=== PATIENT | female | born 2005 | race Two or more races ===

== ENCOUNTER 2024-08-23 16:52 | Emergency (ER) | payer MEDICAID, SELFPAY ==
[2024-08-23 17:01] VITALS: BMI 25.6
[2024-08-23 17:05] VITALS: BP 131/80; PULSE 74; RESP 18; TEMP 36.4; O2SAT 100
--- NOTE | 2024-08-23 17:09 | PC.NURSE ---
PT HERE WITH C/O ABD PAIN SINCE 07/31 AND STATES I THINK MY GALLSTONES ARE ACTING UP AGAIN.
--- NOTE | 2024-08-23 17:16 | XR_ITS ---
Examination: Abdomen sonogram, Limited Date and time of exam: August 23, 2024 1806 hours INDICATIONS: Onset right upper abdominal pain and vomiting beginning 3 days ago Technique: Real-time coleman scale transabdominal sonographic images of the upper abdomen obtained. Findings: Minimal gallbladder sludge No gallstones Gallbladder wall 0.3 cm Common bile duct enlarged 1.1 cm no definite stones Pancreas obscured by bowel gas Liver 15.3 cm fatty liver Normal hepatopedal portal venous flow. Patent IVC. IMPRESSION: Abnormally enlarged common bile duct 1.1 cm, recommend MRCP follow-up to exclude common bile duct stones
--- NOTE | 2024-08-23 17:18 | EDNOTE_ITS ---
ED Abdominal Pain RME/HPI General Chief Complaint: Abdominal Pain Stated complaint: ABDOMINAL PAIN Time seen by provider: 08/23/24 16:57 Arrival date/time: 08/23/24 16:52 19 year old female present to emergency room with history of gallstone present to emergency room via EMS from the clinic report worsen RUQ pain for 3 days. pt report pain intermittent since Jul and diagnosed with gallstones. last meal was 9am LOCATION: chest SEVERITY: Symptoms are described as being severe with limitations on activities of daily living CONTEXT: The patient is unable to identify any inciting events. DURATION/TIMING: The symptoms started approximately ongoing, worsen the 3 days ASSOCIATED SYMPTOMS: RUQ pain, nausea,vomiting MODIFYING FACTORS: The patient is unable to identify any alleviating or aggravating symptoms. PERTINENT ROS: no fevers, no cough, no pleuritic pain, no ripping or tearing sensations, denies any lower extremity edema and no unilateral swelling, no dizziness/headache no rash no loc/syncope episode no abd/back pain no dsyuria,urgency,frequency REVIEW OF SYSTEMS: See History of Present Illness - with the exception of those mentioned in the history of present illness, all other systems reviewed and reported as negative GENERAL: In general the patient is awake, interactive, in an emergency department gurney. moderate pain HEAD/EYES/EARS/NOSE/THROAT: normo-cephalic, atraumatic, mucus membranes are moist, anicteric, palpebral conjunctiva is pink, trachea is midline. CARDIOVASCULAR: regular rate and regular rhythm, no murmurs, heart sounds are not distant, strong pulses in all four extremities that are equal and symmetric bilateral upper and lower extremities, normal capillary refill. CHEST/PULMONARY: normal chest rise and fall, good air movement, clear to auscultation bilaterally, normal inspiratory to expiratory ratios without evidence of respiratory distress. NECK: No midline/Paraspinal tenderness, no step off ROM/Strenght intact No Kernig and bruzinski sign. No trauma ABDOMEN: soft, RUQ tenderness, no cva tenderness no masses appreciated BACK: normal range of motion without pain. NEUROLOGICAL: cranio-facial features are symmetric, moves all four extremities equally without obvious limitations or weakness. EXTREMITY: no tenderness to palpation over the long bones or large joints of the bilateral upper and lower extremities, no joint swelling, no joint erythema, no signs of trauma, no unilateral leg swelling and no peripheral edema. SKIN: warm, dry, well-perfused, no jaundice, no rash, no telangiectasias or petechia. PSYCH: calm, cooperative, no evidence of psychosis or agitation Related Data Home Medications ?Medication ?Instructions ?Recorded ?Confirmed vit no.95-ferrous 1 tab PO QDAY 04/03/2104/04 fumarate 28 mg-folic acid 800 mcg tablet () Previous Rx's ?Medication ?Instructions ?Recorded naproxen 500 mg tablet (Naprosyn) 500 mg PO BID #30 ta bs 04/26/22 ondansetron HCl 4 mg tablet 4 mg PO TID PRN nausea and 04/26/22 vomiting #14 tabs Allergies Allergy/AdvReac Type Severity Reaction Status Date / Time No Known Allergies Allergy Verified 08/23/24 17:28 Course Course Course Narrative: CBC, CMP, Lipase, US toradol, morphine zofran, IV fluids surgery consult Quality Measures none Orders Category Date Time Status CT Screening NOW Care 08/23/24 18:[address] abdomen pelvis w con Stat Exams 08/23/24 18:57 Completed US abdomen limited Stat Exams 08/23/24 17:16 Completed CBC Stat Lab 08/23/24 17:05 Completed CMP [Comprehensive Metabolic Panel] Stat Lab 08/23/24 17:05 Completed HCG,Qualitative Serum Stat Lab 08/23/24 17:05 Completed Lipase Stat Lab 08/23/24 17:05 Completed Troponin I Stat Lab 08/23/24 17:05 Completed UA [Urinalysis] Stat Lab 08/23/24 20:39 Completed Urine Culture Stat Lab 08/23/24 20:39 Received DiphenhydrAMINE INJ [Benadryl Inj] Med 08/23/24 19:37 Discontinued 50 mg IVP X1 ONE Ketorolac Inj [Toradol Inj] Med 08/23/24 17:16 Discontinued 30 mg IVP X1 ONE Morphine Inj Med 08/23/24 18:04 Discontinued 4 mg IVP X1 ONE Ondansetron Inj [Zofran Inj] Med 08/23/24 17:16 Discontinued 4 mg IV X1 ONE Reevaluation(s) Reevaluation #1: pt is feeling better pain control with IV meds, pt is agreeable with transfer to get testing and possible surgery Reevaluation #2: [id number] [facility] with from [facility] , will accept patient if GI agrees , will call back. sign out to Dr. Dahl [id number], waiting for acceptance Vital Signs Vital signs: Vital Signs Temperature 97.5 F 08/23/24 17:05 Pulse Rate 74 08/23/24 17:05 Respiratory Rate 18 08/23/24 17:05 Blood Pressure 131/80 H 08/23/24 17:05 Pulse Oximetry (%) 100 08/23/24 17:05 Oxygen Delivery Method Room Air 08/23/24 17:05 Procedures -ED EKG Interpretation #1: Date of EK08/23/24 Time of EK:16 Rate: 116 Interpretation: Reviewed by me EKG Impression: Sinus tachycardia Abdominal Pain MDM MDM Narrative MDM Narrative:: DISPOSITION: Emergency Department nursing documentation was reviewed including triage complaint, associated symptoms, administration of medications, response to therapy and vital signs. Given the history, physical exam, and review of laboratory and imaging studies the patient is determined to be unsafe for discharge and requires higher level of care. For this reason the patient is being transferred to [transferring hospital] for further diagnostic tests, treatments, stabilization, and monitored response to therapy. I communicated the history, physical exam, pertinent laboratory and imaging studies to the accepting physician. Electronic copies of all emergency department laboratory testing and imaging studies as well as medications ordered and administered are being sent with the patient. Patient data External records reviewed:: [facility] previous records Clinical information provided by:: patient and parent Social determinants that could affect healthcare access:: none Patient has the following chronic illnesses:: gallstone How is presenting disease/condition affected by chronic disease/condition?: exacerbated by Evaluation data The following diagnostics were reviewed and interpreted by me:: lab results, radiology exam(s) and EKG tracing(s) Lab and/or radiology exams considered but not ordered:: n/a Interpretation Summary: Total B: 7.0 ALT 313, AST 805, alp 671 USMinimal gallbladder sludge No gallstones Gallbladder wall 0.3 cm Common bile duct enlarged 1.1 cm no definite stones Pancreas obscured by bowel gas Liver 15.3 cm fatty liver Normal hepatopedal portal venous flow. Patent IVC. IMPRESSION: Abnormally enlarged common bile duct 1.1 cm, recommend MRCP follow-up to exclude common bile duct stones trop negative hcg negative CT: IMPRESSION: Cholelithiasis Significant extrahepatic intrahepatic biliary tract dilatation with enlarged common bile duct and 2 mm common bile duct stone, probable stricture or distal stones in the common bile duct Recommend MRCP follow-up Medications / Prescriptions Medications or Prescriptions considered but not ordered:: n/a Medication administrations:: Medication Administration History Discontinued Medications Diphenhydramine HCl (Diphenhydramine Inj 50 Mg/Ml Vial) 50 mg IVP X1 ONE Stop: 08/23/24 19:38 Last Admin: 08/23/24 19:54 Dose: 50 mg Documented By: SAYRA Ketorolac Tromethamine (Ketorolac Inj 30 Mg/Ml Vial) 30 mg IVP X1 ONE Stop: 08/23/24 17:17 Last Admin: 08/23/24 17:31 Dose: 30 mg Documented By: KDC Morphine Sulfate (Morphine Sulf Inj 10 Mg/Ml Vial) 4 mg IVP X1 ONE Stop: 08/23/24 18:05 Last Admin: 08/23/24 18:11 Dose: 4 mg Documented By: KDC Ondansetron HCl (Ondansetron Inj 2 Mg/Ml Inj 2 Ml) 4 mg IV X1 ONE; Protocol Stop: 08/23/24 17:17 Last Admin: 08/23/24 17:30 Dose: 4 mg Documented By: KD as stated above Consultations Consultation(s) initiated? (list below): Yes Consultation #1 (Physician, Specialty, Details): [address] Dr. Burrows, transfer for MRCP/ERCP, not available currently Consultation #2 (Physician, Specialty, Details): spoke with transfer [facility] to confirm if the transfer is need emergently , provider said yes since her liver is >triple then her previous results. Diagnosis Differential diagnosis abdominal pain: abdominal pain, calculus of kidney, constipation, gastroenteritis, pancreatitis and other (gallstone, liver failure/mass, choley. cbd stone ) Most likely diagnosis given after review of the tests above:: elevated liver enzyme , RUQ pain Admission Indicated Admission indicated?: not indicated Explain why admission is indicated or not indicated:: no MRCP/ERCP, tonight Admission Request Was there a request for admission?: No Disposition Plan Disposition Plan: Transfer Discharge Plan Plan Patient Disposition: [facility] [place] [facility] [place]eded for Transfer: Gastroenterology Prescriptions/Referrals Prescriptions/Med Rec: No Action PNV cmb#95-ferrous fumarate-FA [] 28 mg iron- 800 mcg Tablet 1 tab PO QDAY naproxen [Naprosyn] 500 mg tablet 500 mg PO BID Qty: 30 0RF ondansetron HCl 4 mg tablet 4 mg PO TID PRN (Reason: nausea and vomiting) Qty: 14 0RF Referrals: Bernard Chaudhari MD [Primary Care Provider] - In 1 week Problem List Clinical Impression: Elevated liver enzymes Patient/Caregiver Discharge Instructions Print Language: Chinese Stand Alone Forms: Melina Award Info., Patient Portal Info Letter Attestation Attestation I took over the care from FREDERICK Capellan at 11 PM on 08/23/2024, see his notes for complete H&P and ED course. Dr. Diaz ([facility]) accepted the patient. During my watch, the patient remained stable. Nahid Dahl MD
[2024-08-23] MEDS: ONDANSETRON INJ 2 MG/ML INJ 2 ML 4 MG IV (17:30)
[2024-08-23] MEDS: KETOROLAC INJ 30 MG/ML VIAL IVP (17:31)
[2024-08-23 17:32] LABS: Basophils # (Auto) 0.1 Thou/mm3 (0.0-0.2); Basophils % (Auto) 1 % (0-2.5); Eosinophils # (Auto) 0.1 Thou/mm3 (0.0-0.5); Eosinophils % (Auto) 1 % (0-10); Hematocrit 38.2 % (36.0-46.0); Hemoglobin 13.5 g/dL (12.0-16.0); Immature Granulocytes % (Auto) 0 % (0-0); Immature Granulocytes Auto 0.02 Thou/mm3 (0.00-0.00); Lymphocytes # (Auto) 2.9 Thou/mm3 (1.0-4.8); Lymphocytes % (Auto) 35 % (10-50); Mean Corpuscular HGB Conc 35.3 g/dl (31.0-37.0); Mean Corpuscular Hemoglobin 27.9 pg (25.0-35.0); Mean Corpuscular Volume 79 fL (80-100); Monocytes # (Auto) 0.4 Thou/mm3 (0.0-0.8); Monocytes % (Auto) 5 % (0-12); Neutrophils # (Auto) 4.8 Thou/mm3 (1.8-7.7); Neutrophils % (Auto) 58 % (37-80); Nucleated Red Blood Cell % 0 /100 WBC (0); Platelet Count 361 Thou/mm3 (140-440); RDW Standard Deviation 35.3 fL (36.4-46.3); Red Blood Count 4.84 Miln/mm3 (4.00-5.20); White Blood Count 8.2 Thou/mm3 (4.5-11.0)
[2024-08-23 17:41] LABS: HCG,Qualitative Serum Negative
[2024-08-23 17:47] LABS: Alanine Aminotransferase 805 U/L (10-49); Albumin, Serum 4.8 gm/dL (3.5-5.0); Albumin/Globulin Ratio 1.5 (1.2-2.2); Alkaline Phosphatase 671 U/L (46-116); Anion Gap 16 (7-16); Aspartate Amino Transferase 313 U/L (0-34); BUN/Creatinine Ratio 14 Ratio (12-20); Blood Urea Nitrogen 10 mg/dL (9-23); Calcium 10.1 mg/dL (8.3-10.6); Calcium (Corrected) 10.1 mg/dL (8.5-10.1); Carbon Dioxide 21.9 mMol/L (20.0-31.0); Chloride 100 mMol/L (98-107); Creatinine (Component) 0.7 mg/dL (0.6-1.3); Estimated Creatinine Clearance 112.2 mL/min (>60); Globulin 3.3 gm/dL (2.3-3.5); Glucose 136 mg/dL (74-106); Lipase 24 U/L (12-53); Osmolality,Calculated 276 (275-295); Sodium 138 mMol/L (136-145); Total Protein 8.1 gm/dL (5.7-8.2); Troponin I < 0.002 ng/mL (0.0-0.045); eGFR > 60 See Note
[2024-08-23 18:05] VITALS: BP 106/82; PULSE 76; RESP 16; O2SAT 98
[2024-08-23] MEDS: MORPHINE SULF INJ 10 MG/ML VIAL 4 MG IVP (18:11)
--- NOTE | 2024-08-23 18:57 | XR_ITS ---
Examination: CT abdomen with intravenous contrast CT pelvis with intravenous contrast 2-D coronal reconstructions 2-D sagittal reconstructions Date and time of exam:August 23, 2024 at 2103 hours INDICATIONS: Right upper abdominal pain with elevated liver enzymes on laboratory examination today. CTDI: vol (mGy) 6.30 DLP: (mGycm) 324 Technique: Multiple axial sections of the abdomen and pelvis have been obtained. 64 slice high-resolution scanner used. 3 mm axial sections have been obtained, post intravenous injection of 60 cc Isovue 370 2-D sagittal, coronal reconstructions obtained. Low dose protocols were performed. One or more of the following dose reduction techniques were used; automated exposure control, adjustment of the mA and/or KV according to patient size, use of iterative reconstruction technique. Findings: Intrahepatic biliary tract dilatation There appear to be small gallstones although the certified hyperbaric technologist indicated only gallbladder sludge The gallbladder wall also appears thickened The common hepatic duct is enlarged, 12 mm with a 2 mm common bile duct stone There is abrupt termination of the distal common bile duct which may relate to sludge/stones Negative for pancreatitis No hydronephrosis Aorta normal size Normal appendix No bowel obstruction No bladder mass IMPRESSION: Cholelithiasis Significant extrahepatic intrahepatic biliary tract dilatation with enlarged common bile duct and 2 mm common bile duct stone, probable stricture or distal stones in the common bile duct Recommend MRCP follow-up
[2024-08-23 19:11] VITALS: BP 100/71; PULSE 64; RESP 16; TEMP 36.7; O2SAT 100
--- NOTE | 2024-08-23 19:38 | PC.NURSE ---
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 Entered and will admin medication.- RN informed of situation.
[2024-08-23] MEDS: DiphenhydrAMINE INJ 50 MG/ML VIAL IVP (19:54)
[2024-08-23 20:45] LABS: Collection Type, Urine Voided; RBC,Urine 0 /hpf (0-3)
[2024-08-23 20:54] LABS: Bacteria,Urine Rare; Bilirubin,Urine 2+ (Negative); Blood,Urine Negative (Negative); Clarity,Urine Turbid (Clear/Hazy); Color,Urine Drk-Yellow (Lt Yel-Yel); Glucose, Urine Negative (Negative); Ketones,Urine 2+ (Negative); Leukocyte Esterase,Urine Positive (Negative); Nitrite,Urine Negative (Negative); Protein,Urine Trace (Neg - Trace); Specific Gravity,Urine 1.016 (1.001-1.035); Squamous Epithelial Cell,Urine 3 /hpf (0-5); WBC,Urine 9 /hpf (0-5)
--- NOTE | 2024-08-23 21:01 | PC.NURSE ---
2032 [facility] CONTACTED TAHIRA BARLOW PA-C SPEAKING WITH TRANSFER NURSE AT THIS TIME. [facility] REQUESTING CT . 2055 [facility] CONTACTED BELLA BARLOW SPEAKING WITH TRANSFER NURSE AT THIS TIME.
[2024-08-23 22:07] VITALS: BP 108/70; PULSE 76; RESP 16; TEMP 36.8; O2SAT 97
--- NOTE | 2024-08-23 23:38 | PC.NURSE ---
[address] ADAMSON AT [facility] 309 BED #1. REPORT [phone] EXT [id number].
[2024-08-24 00:10] VITALS: BP 100/61; PULSE 60; RESP 18; TEMP 36.7; O2SAT 100
--- NOTE | 2024-08-24 00:38 | PC.NURSE ---
Called report to [facility] spoke to Citlali CLINE.
== END 2024-08-24 00:25 | disposition short-term general hospital (02) ==
PROVIDERS: Physician Assistant; Emergency Provider Emergency Medicine; PCP Family Medicine
DX: K80.70 Calculus of gallbladder and bile duct without cholecystitis without obstruction (principal); Z75.1 Person awaiting admission to adequate facility elsewhere
CPT/HCPCS: 36415; 74177; 76705; 80053; 81001; 83690; 84484; 84703; 85025; 87086; 96374; 96375; 99285; A4649; J1200; J1885; J2270; J2405; Q9967

== ENCOUNTER 2024-09-13 14:47 | Emergency (ER) | payer MEDICAID, SELFPAY ==
[2024-09-13 14:57] VITALS: BP 108/66; PULSE 85; RESP 16; TEMP 36.8; O2SAT 95; BMI 24.1
[2024-09-13 15:03] VITALS: PULSE 89; RESP 18; O2SAT 100; BMI 24.1
--- NOTE | 2024-09-13 15:41 | XR_ITS ---
Examination: PA lateral chest 2 views TECHNIQUE: Upright PA lateral chest 2 views Exam date and time: September 13, 2024 1648 hours INDICATIONS: Shortness of breath today. FINDINGS: Normal heart size. Lungs are clear. The osseous structures are intact IMPRESSION: No active disease
--- NOTE | 2024-09-13 15:46 | EDRME_ITS ---
Rapid Medical Screening Exam RME Arrival date/time: 09/13/24 14:47 Chief Complaint: Abdominal Pain Time Seen by Provider: 09/13/24 15:29 Vital signs: Vital Signs Temperature 98.2 F 09/13/24 14:57 Pulse Rate 85 09/13/24 14:57 Respiratory Rate 16 09/13/24 14:57 Blood Pressure 108/66 09/13/24 14:57 Pulse Oximetry (%) 95 09/13/24 14:57 Oxygen Delivery Method Room Air 09/13/24 14:57 Vital signs reviewed by provider: Yes RME Narrative: 19-year-old female presents to the ED with an initial complaint of right upper quadrant abdominal pain that occurred prior to arrival. She then began to have rapid breathing with shortness of breath, rapid heart rate, as well as pain in her chest radiating up to her bilateral shoulders. She had associated numbness and tingling to her nose, hands and feet. She underwent a cholecystectomy approximately 2 weeks ago and last week was experiencing pain around her umbilicus. She denies any fever or chills, nausea or vomiting. She spoke with her surgeon who indicated that if she was still having pain this week to follow- up with him. She denies any current pain in the umbilicus area.
--- NOTE | 2024-09-13 16:03 | XR_ITS ---
Examination: Abdomen sonogram, Limited Date and time of exam: September 13, 2024 1600 hrs. Indications: Onset right upper abdominal pain beginning 2 weeks ago Technique: Real-time coleman scale transabdominal sonographic images of the upper abdomen obtained. Findings: Absent gallbladder. Common bile duct 0.7 cm no stones Pancreatic head 1.3 cm Liver 15.15 infiltration Normal hepatopedal portal venous flow Patent IVC Impression: Absent gallbladder. No common bile duct stones
[2024-09-13 16:38] LABS: Collection Type, Urine Clean Catch
[2024-09-13 16:40] LABS: Basophils # (Auto) 0.1 Thou/mm3 (0.0-0.2); Basophils % (Auto) 1 % (0-2.5); Eosinophils # (Auto) 0.4 Thou/mm3 (0.0-0.5); Eosinophils % (Auto) 5 % (0-10); Hematocrit 33.4 % (36.0-46.0); Hemoglobin 11.4 g/dL (12.0-16.0); Immature Granulocytes % (Auto) 0 % (0-0); Immature Granulocytes Auto 0.01 Thou/mm3 (0.00-0.00); Lymphocytes # (Auto) 2.8 Thou/mm3 (1.0-4.8); Lymphocytes % (Auto) 37 % (10-50); Mean Corpuscular HGB Conc 34.1 g/dl (31.0-37.0); Mean Corpuscular Hemoglobin 28.6 pg (25.0-35.0); Mean Corpuscular Volume 84 fL (80-100); Monocytes # (Auto) 0.5 Thou/mm3 (0.0-0.8); Monocytes % (Auto) 7 % (0-12); Neutrophils # (Auto) 3.8 Thou/mm3 (1.8-7.7); Neutrophils % (Auto) 51 % (37-80); Nucleated Red Blood Cell % 0 /100 WBC (0); Platelet Count 348 Thou/mm3 (140-440); Red Blood Count 3.98 Miln/mm3 (4.00-5.20); White Blood Count 7.5 Thou/mm3 (4.5-11.0)
[2024-09-13 16:49] LABS: HCG Qualitative,Urine Negative
[2024-09-13 16:54] LABS: Amorphous Crystals,Urine Present (Absent); Bacteria,Urine Rare; Bilirubin,Urine Negative (Negative); Blood,Urine Negative (Negative); Clarity,Urine Clear (Clear/Hazy); Color,Urine Yellow (Lt Yel-Yel); Glucose, Urine Negative (Negative); Ketones,Urine Negative (Negative); Leukocyte Esterase,Urine Negative (Negative); Nitrite,Urine Negative (Negative); PH,Urine 8.5 (5.0-7.0); Protein,Urine Trace (Neg - Trace); RBC,Urine 4 /hpf (0-3); Specific Gravity,Urine 1.026 (1.001-1.035); Squamous Epithelial Cell,Urine < 1 /hpf (0-5); WBC,Urine 3 /hpf (0-5)
[2024-09-13 17:29] LABS: Alanine Aminotransferase 98 U/L (10-49); Albumin/Globulin Ratio 1.4 (1.2-2.2); Alkaline Phosphatase 287 U/L (46-116); Amylase < 20 U/L (30-118); Anion Gap 7 (7-16); Aspartate Amino Transferase 80 U/L (0-34); BUN/Creatinine Ratio 13 Ratio (12-20); Bilirubin,Total 1.8 mg/dL (0.3-1.2); Blood Urea Nitrogen 9 mg/dL (9-23); Calcium 8.9 mg/dL (8.3-10.6); Calcium (Corrected) 8.9 mg/dL (8.5-10.1); Chloride 108 mMol/L (98-107); Creatinine (Component) 0.7 mg/dL (0.6-1.3); Estimated Creatinine Clearance 101.4 mL/min (>60); Globulin 2.8 gm/dL (2.3-3.5); Glucose 126 mg/dL (74-106); Lipase 24 U/L (12-53); Osmolality,Calculated 281 (275-295); Potassium 3.7 mMol/L (3.4-5.1); Sodium 141 mMol/L (136-145); Total Protein 6.8 gm/dL (5.7-8.2); eGFR > 60 See Note
[2024-09-13 17:57] LABS: Base Excess 0 (-3-3); HCO3 24 mEq/L (20-26); Inspired Oxygen, FIO2 21 %; O2 Saturation 99 % (91-98); PCO2 36 mmHg (32.0-48.0); PO2 112 mmHg (83-108); pH, Arterial 7.43 (7.35-7.45)
[2024-09-13 18:21] LABS: Allen Test Performed/OK; Puncture Site Right Radial
[2024-09-13 19:35] VITALS: BP 100/73; PULSE 66; RESP 18; TEMP 36.7; O2SAT 100
--- NOTE | 2024-09-13 19:40 | PD.EDABDPN ---
ED Abdominal Pain RME/HPI General Chief Complaint: Abdominal Pain Stated complaint: ABDOMINAL PAIN Time seen by provider: 09/13/24 15:29 Arrival date/time: 09/13/24 14:47 RME / HPI RME / HPI narrative: 19-year-old female presents to the ED with an initial complaint of right upper quadrant abdominal pain that occurred prior to arrival. She then began to have rapid breathing with shortness of breath, rapid heart rate, as well as pain in her chest radiating up to her bilateral shoulders. She had associated numbness and tingling to her nose, hands and feet. She underwent a cholecystectomy approximately 2 weeks ago and last week was experiencing pain around her umbilicus. She denies any fever or chills, nausea or vomiting. She spoke with her surgeon who indicated that if she was still having pain this week to follow-up with him. She denies any current pain in the umbilicus area. Dr. Smith's Main ED Evaluation: 19yo female who is s/p cholecystectomy Related Data Home Medications ?Medication ?Instructions ?Recorded ?Confirmed vit no.95-ferrous 1 tab PO QDAY 04/03/21 04/24/21 fumarate 28 mg-folic acid 800 mcg tablet () Previous Rx's ?Medication ?Instructions ?Recorded naproxen 500 mg tablet (Naprosyn) 500 mg PO BID #30 tabs 04/26/22 ondansetron HCl 4 mg tablet 4 mg PO TID PRN nausea and 04/26/22 vomiting #14 tabs Allergies Allergy/AdvReac Type Severity Reaction Status Date / Time No Known Allergies Allergy Verified 09/13/24 15:06 Review of Systems Review of Systems Systems Reviewed: All systems reviewed, normal except as documented Past Medical History Past Medical History NEUROLOGIC: Negative Neurological Disorders CARDIAC: Negative Cardiac Disorders or Congestive Heart Failure RESPIRATORY: Negative Chronic Obstructive Pulmonary Disease (COPD) or Asthma GASTROINTESTINAL: Positive Gall Bladder Disease; Negative Gastrointestinal Disorders GENITOURINARY: Negative Genitourinary Disorders or Renal Disease MUSCULOSKELETAL: Negative Musculoskeletal Disorders ENDOCRINE: Negative Endocrine Disorders, Diabetes Mellitus Type 1 or Diabetes Mellitus Type 2 HEMATOLOGIC: Negative Blood Disorders or Sickle Cell Disease OTHER HISTORY: Negative Autoimmune Disease, Anesthesia Reactions, Organ Transplant, MRSA, Clostridium Difficile or Cancer Family History FAMILY HISTORY: Negative Family Cardiac Disorders Surgical History SURGICAL: Negative Cardiac Surgery, Endocrine Surgery, Ear Surgery, Abdominal Surgery, Nephrectomy, Transurethral Resection, Joint Replacement, Neurologic Surgery, Mastectomy, Vasectomy or Organ Transplant Social History SMOKING STATUS: Never smoker Course Quality Measures none Orders Category Date Time Status CT Screening NOW Care 09/13/24 19:12 Active NPO STAT Care 09/13/24 15:[address] abdomen pelvis w con Stat Exams 09/13/24 19:12 Ordered US abdomen limited Stat Exams 09/13/24 16:03 Completed XR chest 2V Stat Exams 09/13/24 15:41 Taken ABG [Arterial Blood Gas] Stat Lab 09/13/24 17:52 Completed Amylase Stat Lab 09/13/24 16:33 Completed CBC Stat Lab 09/13/24 16:33 Completed Comprehensive Metabolic Panel Stat Lab 09/13/24 16:33 Completed HCG Qualitative,Urine Stat Lab 09/13/24 16:35 Completed Lipase Stat Lab 09/13/24 16:33 Completed Urinalysis Stat Lab 09/13/24 16:35 Completed Vital Signs Vital signs: Vital Signs Temperature 98.2 F 09/13/24 14:57 Pulse Rate 85 09/13/24 14:57 Respiratory Rate 16 09/13/24 14:57 Blood Pressure 108/66 09/13/24 14:57 Pulse Oximetry (%) 95 09/13/24 14:57 Oxygen Delivery Method Room Air 09/13/24 14:57 Abdominal Pain MDM MDM Narrative MDM Narrative:: Scribe Attestation: 09/13/24 - Jayla Severino am scribing for and in the presence of Dr. Smith. Patient data External records reviewed:: [facility] previous records (Per chart review, patient was seen here on 08/23/24 and was transferred to [facility] for LFTs.) Clinical information provided by:: patient Social determinants that could affect healthcare access:: none Patient has the following chronic illnesses:: none How is presenting disease/condition affected by chronic disease/condition?: no chronic disease Evaluation data The following diagnostics were reviewed and interpreted by me:: lab results and radiology exam(s) Lab and/or radiology exams considered but not ordered:: none Medications / Prescriptions Medications or Prescriptions considered but not ordered:: none Discharge Plan Prescriptions/Referrals Prescriptions/Med Rec: No Action PNV cmb#95-ferrous fumarate-FA [] 28 mg iron- 800 mcg Tablet 1 tab PO QDAY naproxen [Naprosyn] 500 mg tablet 500 mg PO BID Qty: 30 0RF ondansetron HCl 4 mg tablet 4 mg PO TID PRN (Reason: nausea and vomiting) Qty: 14 0RF Referrals: No Primary/Family,Physician [Primary Care Provider] - In 1 week Patient/Caregiver Discharge Instructions Print Language: Brazilian
--- NOTE | 2024-09-13 19:46 | PRELIM_ITS ---
Radiographs of the chest (2 views). September 13, 2024 1648 hours Clinical history: Shortness Of Breath Comparison: No prior study is available for comparison. Findings: The heart, mediastinum and pulmonary ren are unremarkable. The lungs are clear. There is no pleural effusion. The bony thorax is unremarkable. Impression: No acute cardiopulmonary process. Report Electronically Signed By: Von Marlow 09/13/2024 7:45:29 PM [EST]
--- NOTE | 2024-09-13 21:31 | PD.EDADULT ---
ED General RME/HPI General Chief complaint: Abdominal Pain Stated complaint: ABDOMINAL PAIN Time Seen by Provider: 09/13/24 15:29 Arrival date/time: 09/13/24 14:47 CC: Abdominal pain HPI patient had right upper quadrant abdominal pain in mosque that lasted approximately 45 minutes then spontaneously resolved. The patient also then complained of a mild headache. Patient had a recent cholecystectomy 2 weeks ago was seen by the surgeon 3 days ago and told if there is any worsening of symptoms to make a follow-up appointment with him he apparently the patient is afebrile nontoxic-appearing not in any acute distress and mildly anxious. RME / HPI RME / HPI narrative: 19-year-old female presents to the ED with an initial complaint of right upper quadrant abdominal pain that occurred prior to arrival. She then began to have rapid breathing with shortness of breath, rapid heart rate, as well as pain in her chest radiating up to her bilateral shoulders. She had associated numbness and tingling to her nose, hands and feet. She underwent a cholecystectomy approximately 2 weeks ago and last week was experiencing pain around her umbilicus. She denies any fever or chills, nausea or vomiting. She spoke with her surgeon who indicated that if she was still having pain this week to follow-up with him. She denies any current pain in the umbilicus area. Dr. Smith's Main ED Evaluation: 19yo female who is s/p cholecystectomy Related Data Allergies Allergy/AdvReac Type Severity Reaction Status Date / Time No Known Allergies Allergy Verified 09/13/24 15:06 Review of Systems Review of Systems Narrative Review of Systems: GEN: No fever, no chills, no weight loss EYES: No discharge, no visual changes, no pain HEENT: No ear pain, no congestion, no sore throat PULM: No shortness of breath, no cough, no congestion CV: No chest pain, no dyspnea on exertion, no palpitations GI: No nausea, no vomiting, no diarrhea, + pain, no constipation : No frequency, no urgency, no dysuria MUSC/SKEL: No joint pain, no back pain SKIN: No rash PSYCH: No hallucinations, no depression HEME/LYMPH: No easy bleeding or bruising tendencies NEURO: No weakness, no headache ED Exam Narrative Physical exam: [General: Not in any acute distress Head normocephalic HEENT: Within acceptable limits Neck is supple nontender Chest equal chest rise nontender to palpation Respiratory: Clear to auscultation no wheezes crackles or rubs CV: Rate rhythm is regular no murmurs rubs or clicks Abdomen is soft nontender no masses positive bowel sounds all 4 quadrants Back: No CVA tenderness no spinous process tenderness from cervical spine thoracic and lumbar spine Skin: Intact no petechiae rash induration ulceration or crepitus Extremities: Moving all extremity against resistance cap refill less than 2 seconds neurosensory intact Neuro: Awake alert oriented x3 Glascow coma 15 no focal deficits] Course Quality Measures none Orders Category Date Time Status CT Screening NOW Care 09/13/24 19:12 Active NPO STAT Care 09/13/24 15:[address] abdomen pelvis w con Stat Exams 09/13/24 19:12 Stop Req US abdomen limited Stat Exams 09/13/24 16:03 Completed XR chest 2V Stat Exams 09/13/24 15:41 Taken ABG [Arterial Blood Gas] Stat Lab 09/13/24 17:52 Completed Amylase Stat Lab 09/13/24 16:33 Completed CBC Stat Lab 09/13/24 16:33 Completed Comprehensive Metabolic Panel Stat Lab 09/13/24 16:33 Completed HCG Qualitative,Urine Stat Lab 09/13/24 16:35 Completed Lipase Stat Lab 09/13/24 16:33 Completed Urinalysis Stat Lab 09/13/24 16:35 Completed Vital Signs Vital signs: Vital Signs Temperature 98.2 F 09/13/24 14:57 Pulse Rate 85 09/13/24 14:57 Respiratory Rate 16 09/13/24 14:57 Blood Pressure 108/66 09/13/24 14:57 Pulse Oximetry (%) 95 09/13/24 14:57 Oxygen Delivery Method Room Air 09/13/24 14:57 [facility] Patient data External records reviewed:: [facility] previous records Clinical information provided by:: patient Social determinants that could affect healthcare access:: none Patient has the following chronic illnesses:: None recent cholecystectomy How is presenting disease/condition affected by chronic disease/condition?: uneffected by Evaluation data The following diagnostics were reviewed and interpreted by me:: lab results and radiology exam(s) Lab and/or radiology exams considered but not ordered:: CBC shows no leukocytosis H&H of 11.4 and 33.4 no thrombocytopenia CMP shows no acute electrolyte imbalances renal impairment. T. bili is mildly elevated at 1.8 AST at 80 ALT 98 alk phos of 287 amylase less than 20. Urine is negative , Bile duct show ended up 0.7 cm. No CBD stone. Lipase of 24 Interpretation Summary: Abdominal pain has resolved, the patient is mildly anxious there is a concern of having a mild transaminitis and T. bili elevation I am suspect this is downtrending status post surgery. Medications Medications considered but not ordered:: None Medication administrations:: None Consultations Consultation(s) initiated? (list below): No Diagnosis Differential Diagnosis ED Complaint MDM: Abdominal pain CBD dilated Tatian, choledocholithiasis Most likely diagnosis given after review of the tests above:: Abdominal pain Admission Indicated Admission indicated?: not indicated Explain why admission is indicated or not indicated:: Stable for discharge Admission Request Was there a request for admission?: No Disposition Plan Disposition Plan: Discharge Discharge Attestation Discharge Attestation: The patient and all family members were given an opportunity to ask questions and understood the discharge instructions. Discharge instructions specifically effects, indications for sooner follow up or return to the emergency department, and the expected course of current diagnosis. Patient condition: Stable Medical Decision Making Differential Diagnosis Differential Diagnosis: Abdominal pain CBD dilated Tatian, choledocholithiasis Lab Data 09/13/24 16:33 09/13/24 16:33 Labs: Lab Results 09/13/24 09/13/24 09/13/24 Range/Units 16:33 16:35 17:52 WBC 7.5 (4.5-11.0) Thou/mm3 RBC 3.98 L (4.00-5.20) Miln/mm3 Hgb 11.4 L (12.0-16.0) g/dL Hct 33.4 L (36.0-46.0) % MCV 84 (80-100) fL MCH 28.6 (25.0-35.0) pg MCHC 34.1 (31.0-37.0) g/dl RDW Std Deviation 39.0 (36.4-46.3) fL Plt Count 348 (140-440) Thou/mm3 Neut % (Auto) 51 (37-80) % Lymph % (Auto) 37 (10-50) % Saunders % (Auto) 7 (0-12) % Eos % (Auto) 5 (0-10) % Baso % (Auto) 1 (0-2.5) % Neut # (Auto) 3.8 (1.8-7.7) Thou/mm3 Lymph # (Auto) 2.8 (1.0-4.8) Thou/mm3 Saunders # (Auto) 0.5 (0.0-0.8) Thou/mm3 Eos # (Auto) 0.4 (0.0-0.5) Thou/mm3 Baso # (Auto) 0.1 (0.0-0.2) Thou/mm3 Immature Gran # (Auto) 0.01 H (0.00-0.00) Thou/mm3 Absolute Nucleated RBC 0.00 (0.00-0.00) Thou/mm3 Immature Gran % 0 (0-0) % Nucleated RBC % 0 (0) /100 WBC Puncture Site Right Radial ABG pH 7.43 (7.35-7.45) ABG pCO2 36 (32.0-48.0) mmHg ABG pO2 112 H (83-108) mmHg ABG HCO3 24 (20-26) mEq/L ABG O2 Saturation 99 H (91-98) % ABG Base Excess 0 (-3-3) FiO2 21 % Sodium 141 (136-145) mMol/L Potassium 3.7 (3.4-5.1) mMol/L Chloride 108 H (98-107) mMol/L Carbon Dioxide 26.0 (20.0-31.0) mMol/L Anion Gap 7 (7-16) BUN 9 (9-23) mg/dL Creatinine 0.7 (0.6-1.3) mg/dL Estim Creat Clear Calc 101.4 (>60) mL/min eGFR > 60 (60 - ) See Note BUN/Creatinine Ratio 13 (12-20) Ratio Glucose 126 H (74-106) mg/dL Calculated Osmolality 281 (275-295) Calcium 8.9 (8.3-10.6) mg/dL Corrected Calcium 8.9 (8.5-10.1) mg/dL Total Bilirubin 1.8 H (0.3-1.2) mg/dL AST 80 H (0-34) U/L ALT 98 H (10-49) U/L Alkaline Phosphatase 287 H (46-116) U/L Total Protein 6.8 (5.7-8.2) gm/dL Albumin 4.0 (3.5-5.0) gm/dL Globulin 2.8 (2.3-3.5) gm/dL Albumin/Globulin Ratio 1.4 (1.2-2.2) Amylase < 20 L (30-118) U/L Lipase 24 (12-53) U/L Ur Collection Type Clean Catch Urine Color Yellow (Lt Yel-Yel) Urine Clarity Clear (Clear/Hazy) Urine pH 8.5 H (5.0-7.0) Ur Specific [place] 1.026 (1.001-1.035) Urine Protein Trace (Neg - Trace) Urine Glucose (UA) Negative (Negative) Urine Ketones Negative (Negative) Urine Blood Negative (Negative) Urine Nitrite Negative (Negative) Urine Bilirubin Negative (Negative) Urine Urobilinogen (Auto) 6.0 (0.0-1.0) mg/dL Ur Leukocyte Esterase Negative (Negative) Urine RBC 4 H (0-3) /hpf Urine WBC 3 (0-5) /hpf Ur Squamous Epith Cells < 1 (0-5) /hpf Amorphous Crystals Present A (Absent) Urine Bacteria Rare (None) Urine HCG, Qual Negative Discharge Plan Plan Patient Disposition: HOME (Self Care) Patient condition on transfer: Stable Prescriptions/Referrals Referrals: No Primary/Family,Physician [Primary Care Provider] - In 1 week Bernard Chaudhari MD [Physician] - In 1 week Problem List Clinical Impression: Abdominal pain Patient/Caregiver Discharge Instructions Education Materials: Abdominal Pain, ED Anxiety Reaction Print Language: Serbian Stand Alone Forms: Melina Award Info., Work/School Release, Patient Portal Info Letter PA/CONTROLLED [employer] Supervising Physician PA/CONTROLLED [employer] Supervising Physician: Vinnie Engel ENP
[2024-09-13 21:50] VITALS: BP 108/73; PULSE 84; RESP 18; TEMP 36.7; O2SAT 100
== END 2024-09-13 21:50 | disposition home or self-care (01) ==
PROVIDERS: Physician Assistant; Emergency Provider Emergency Medicine
DX: R10.11 Right upper quadrant pain (principal); R06.02 Shortness of breath; R74.01 Elevation of levels of liver transaminase levels; Z90.49 Acquired absence of other specified parts of digestive tract
CPT/HCPCS: 36415; 36600; 71046; 76705; 80053; 81001; 81025; 82150; 82803; 83690; 85025; 99284

== ENCOUNTER 2025-03-29 16:54 | Inpatient (IN) | payer MEDICAID, SELFPAY ==
[2025-03-29 16:56] VITALS: BMI 25.7
[2025-03-29 17:09] VITALS: BP 116/76; PULSE 105; RESP 18; TEMP 36.8; O2SAT 98
--- NOTE | 2025-03-29 17:11 | EDRME_ITS ---
Rapid Medical Screening Exam [facility] Arrival date/time: 03/29/25 16:54 20-year-old female with no known medical history presents to the emergency room with a chief complaint of abdominal cramping, cough, congestion, fevers x 3 days I have greeted and performed a focused initial assessment of this patient. A comprehensive ED assessment and evaluation of the patient, analysis of all test results, and completion of the medical decision making process will be conducted by additional ED providers. Chief Complaint: Abdominal Pain Time Seen by Provider: 03/29/25 17:03 Vital signs: Vital Signs Temperature 98.3 F 03/29/25 17:09 Pulse Rate 105 H 03/29/25 17:09 Respiratory Rate 18 03/29/25 17:09 Blood Pressure 116/76 03/29/25 17:09 Pulse Oximetry (%) 98 03/29/25 17:09 Oxygen Delivery Method Room Air 03/29/25 17:09 Vital signs reviewed by provider: Yes Exam: Clear bilateral lung sounds no wheezing no abnormal breath sounds. Strong and regular rhythm S1 and S2 noted Clinical Impression: Influenza/COVID-19/URI/pneumonia/abdominal pain/UTI
[2025-03-29 17:25] LABS: Collection Type, Urine Clean Catch
[2025-03-29 17:55] LABS: Bacteria,Urine Rare; Bilirubin,Urine 4+ (Negative); Blood,Urine Negative (Negative); Clarity,Urine Clear (Clear/Hazy); Color,Urine Drk-Yellow (Lt Yel-Yel); Glucose, Urine Negative (Negative); Ketones,Urine 1+ (Negative); Leukocyte Esterase,Urine Positive (Negative); Nitrite,Urine Negative (Negative); PH,Urine 7.0 (5.0-7.0); Protein,Urine 1+ (Neg - Trace); RBC,Urine 7 /hpf (0-3); Specific Gravity,Urine 1.038 (1.001-1.035); Squamous Epithelial Cell,Urine 6 /hpf (0-5); Urobilinogen,Urine 8.0 mg/dL (0.0-1.0); WBC,Urine 12 /hpf (0-5)
[2025-03-29 17:56] LABS: Influenza A Ag Negative; Influenza B Ag Negative
[2025-03-29 18:06] LABS: Basophils # (Auto) 0.0 Thou/mm3 (0.0-0.2); Basophils % (Auto) 0 % (0-2.5); Eosinophils # (Auto) 0.0 Thou/mm3 (0.0-0.5); Eosinophils % (Auto) 0 % (0-10); Hematocrit 34.7 % (36.0-46.0); Hemoglobin 11.8 g/dL (12.0-16.0); Immature Granulocytes Auto 0.02 Thou/mm3 (0.00-0.00); Lymphocytes # (Auto) 0.9 Thou/mm3 (1.0-4.8); Lymphocytes % (Auto) 12 % (10-50); Mean Corpuscular HGB Conc 34.0 g/dl (31.0-37.0); Mean Corpuscular Hemoglobin 28.3 pg (25.0-35.0); Mean Corpuscular Volume 83 fL (80-100); Monocytes # (Auto) 0.5 Thou/mm3 (0.0-0.8); Monocytes % (Auto) 7 % (0-12); Neutrophils # (Auto) 5.8 Thou/mm3 (1.8-7.7); Neutrophils % (Auto) 80 % (37-80); Nucleated Red Blood Cell # 0.00 Thou/mm3 (0.00-0.00); Nucleated Red Blood Cell % 0 /100 WBC (0); Platelet Count 336 Thou/mm3 (140-440); RDW Standard Deviation 36.0 fL (36.4-46.3); Red Blood Count 4.17 Miln/mm3 (4.00-5.20); White Blood Count 7.3 Thou/mm3 (3.6-11.0)
[2025-03-29 18:23] LABS: Alanine Aminotransferase 238 U/L (10-49); Albumin, Serum 4.6 gm/dL (3.5-5.0); Albumin/Globulin Ratio 1.5 (1.2-2.2); Alkaline Phosphatase 642 U/L (46-116); Anion Gap 11 (7-16); Aspartate Amino Transferase 184 U/L (0-34); BUN/Creatinine Ratio 10 Ratio (12-20); Bilirubin,Total 7.1 mg/dL (0.3-1.2); Blood Urea Nitrogen < 5 mg/dL (9-23); Calcium 9.8 mg/dL (8.3-10.6); Calcium (Corrected) 9.8 mg/dL (8.5-10.1); Carbon Dioxide 24.9 mMol/L (20.0-31.0); Chloride 100 mMol/L (98-107); Creatinine (Component) 0.5 mg/dL (0.6-1.3); Estimated Creatinine Clearance 168.7 mL/min (>60); Globulin 3.1 gm/dL (2.3-3.5); Glucose 153 mg/dL (74-106); Lipase 20 U/L (12-53); Osmolality,Calculated 272 (275-295); Potassium 3.6 mMol/L (3.4-5.1); Sodium 136 mMol/L (136-145); Total Protein 7.7 gm/dL (5.7-8.2); eGFR > 60 See Note
[2025-03-29 21:57] VITALS: BP 115/78; PULSE 82; RESP 16; TEMP 36.8; O2SAT 98
--- NOTE | 2025-03-29 22:09 | EDNOTE_ITS ---
ED Abdominal Pain RME/HPI General Chief Complaint: Abdominal Pain Stated complaint: MULTIPLE COMPLAINTS Time seen by provider: 03/29/25 17:03 Arrival date/time: 03/29/25 16:54 RME / HPI RME / HPI narrative: 03/29/25 16:54 20-year-old female with no known medical history presents to the emergency room with a chief complaint of abdominal cramping, cough, congestion, fevers x 3 days I have greeted and performed a focused initial assessment of this patient. A comprehensive ED assessment and evaluation of the patient, analysis of all test results, and completion of the medical decision making process will be conducted by additional ED providers. DR. PHAM MAIN ED EVALUATION: Patient presenting with ongoing flu-like symptoms characterized by nasal congestion, mild sore throat, productive cough, generalized fatigue, and RUQ abdominal pain of approximately 3 weeks duration. Reports 3 bouts of vomiting over last few days. Also notes recent positive test with LMP in February. EGA 7 weeks . Reports vaginal spotting. PMH: Gall Bladder Disease PSH: Cholecystectomy Allergies: None Social: No alcoholism or illicit drugs abuse Exam: Clear bilateral lung sounds no wheezing no abnormal breath sounds. Strong and regular rhythm S1 and S2 noted Impression: Influenza/COVID-19/URI/pneumonia/abdominal pain/UTI Related Data Allergies Allergy/AdvReac Type Severity Reaction Status Date / Time No Known Allergies Allergy Verified 03/29/25 17:00 Review of Systems Review of Systems Systems Reviewed: All systems reviewed, normal except as documented Past Medical History Past Medical History GASTROINTESTINAL: Positive Gall Bladder Disease ED Exam Narrative Physical exam: GEN. APPEARANCE: The patient is alert awake oriented X-3 under no distress, lying down comfortably, does not look ill/toxic. Patient has good eye contact. Patient is cooperative. VITALS: All vitals were reviewed and the pulse ox is 98%, which is normal according to my interpretation HEENT: Normocephalic, atraumatic and nontender. Pupils are equal and reactive. Mild scleral icterus identified. Oral mucosa is moist. NECK: Supple, nontender, no meningismus, no JVD. There is no thyromegaly and no lymphadenopathy. CHEST: Nontender on palpation no deformity and no crepitus. CARDIOVASCULAR: Heart regular rhythm, no murmur or gallop rub or extra beats. LUNGS: Clear to auscultation bilaterally with symmetrical chest rise. No laboring tachypnea or wheezing. No intercostal subcostal retraction. No rales and no rhonchi. ABDOMEN: Soft, flat, mild tenderness to RUQ, no guarding or peritoneal findings. There are no abnormal masses palpated. No pulsatile masses or bruits. Active and normal bowel sounds. PELVIC: No vagainal bleeding EXTREMITIES: Normal inspection and palpation. No edema. No cyanosis. Patient is able to move all 4 extremities well SKIN: Warm and dry, no rashes noted. MUSCULOSKELETAL: No lumbar or midline bony tenderness. There is no CVA tenderness. No paraspinal muscle spasm or tenderness. NEURO: Cranial nerves II through XII grossly intact. There are no focal neurologic deficits noted. GCS is 15 PSYCHIATRIC: Patient is in normal mood and affect, cooperative. LYMPHATICS: No major lymphadenopathy noted. Course Quality Measures none Orders Category Date Time Status Bedside COVID-19 Antigen Test NOW Care 03/29/25 17:11 Active US liver Stat Exams 03/30/25 00:01 Ordered Acetaminophen Stat Lab 03/30/25 00:00 Received Beta HCG,Quantitative Stat Lab 03/29/25 17:27 Completed Bilirubin,Direct Stat Lab 03/30/25 00:00 Received CBC Stat Lab 03/29/25 17:27 Completed CMP [Comprehensive Metabolic Panel] Stat Lab 03/29/25 17:27 Completed Cocci Serology IgM with reflex to IgG [Cocci Serology, Lab 03/29/25 23:11 Received Unk History] Stat Hepatitis Acute Panel Stat Lab 03/29/25 17:27 Completed Influenza A & B Rapid Panel Stat Lab 03/29/25 17:15 Completed Lipase Stat Lab 03/29/25 17:27 Completed PT [Prothrombin Time with INR] Stat Lab 03/30/25 00:07 Received PTT [Partial Thromboplastin Time] Stat Lab 03/30/25 00:07 Received UA [Urinalysis] Stat Lab 03/29/25 17:22 Completed Urine Culture Stat Lab 03/29/25 17:22 Received Vital Signs Vital signs: Vital Signs Temperature 98.3 F 03/29/25 17:09 Pulse Rate 105 H 03/29/25 17:09 Respiratory Rate 18 03/29/25 17:09 Blood Pressure 116/76 03/29/25 17:09 Pulse Oximetry (%) 98 03/29/25 17:09 Oxygen Delivery Method Room Air 03/29/25 17:09 Abdominal Pain MDM MDM Narrative MDM Narrative:: Scribe Attestation: I, Ofelia Barbour, am scribing for and in the presence of Dr. Pham. Provider Notation: Although this document has been carefully reviewed, there may still be some phonetic and other typographical errors. These errors are purely grammatical due to imperfections in the software program and should not be construed in any way to compromise the substance of the patient's medical care during this visit. Patient presenting with ongoing flu-like symptoms characterized by nasal congestion, mild sore throat, productive cough, generalized fatigue, and RUQ abdominal pain of approximately 3 weeks duration. Reports 3 bouts of vomiting over last few days. Please see PE findings. Patient non-toxic in appearance with mildly tender RUQ abdominal pain and markedly elevated Total Bilirubin and transaminases. Case discussed at length with on-call hospitalist who's agreed to admit patient for further diagnostic modalities and monitoring. Final diagnosis includes acute hepatitis, disposition, admit to medicine service. Patient data External records reviewed:: [facility] previous records (Reviewed prior ED records from 09/13/24. Patient was seen for Abdominal pain.) Clinical information provided by:: patient Social determinants that could affect healthcare access:: none Patient has the following chronic illnesses:: None reported How is presenting disease/condition affected by chronic disease/condition?: no chronic disease Evaluation data The following diagnostics were reviewed and interpreted by me:: lab results Lab and/or radiology exams considered but not ordered:: None Interpretation Summary: See MDM above Medications / Prescriptions Medications or Prescriptions considered but not ordered:: None Medication administrations:: See above if any Consultations Consultation(s) initiated? (list below): Yes Consultation #1 (Physician, Specialty, Details): Discussed with Hospitalist for admission. Reviewed the patient?s HPI, PMHx, lab and/or radiology results. Discussed treatment plan. Will consult an admission to the hospitalist. Time: 22:55 Diagnosis Differential diagnosis abdominal pain: abdominal pain, calculus of kidney, gastroenteritis and other (Hepatitis, Cirrhosis) Most likely diagnosis given after review of the tests above:: Acute hepatitis Admission Indicated Admission indicated?: indicated Explain why admission is indicated or not indicated:: Acute hepatitis Admission Request Was there a request for admission?: Yes Admission Attestation Admission request attestation: Discussed case with [] from Hospitalist service regarding admission. Discussed patients ED course, exam findings, labs, and radiology results. The Hospitalist [agrees,declines] to accept the patient for admission. Disposition Plan Disposition Plan: Admit Discharge Plan Plan Patient Disposition: Admit Acute Care w/in Hospital Prescriptions/Referrals Referrals: Bernard Chaudhari MD [Primary Care Provider, Family Practice] - In 1 week Problem List Clinical Impression: Acute hepatitis Patient/Caregiver Discharge Instructions Print Language: Mohawk Stand Alone Forms: Melina Award Info., Patient Portal Info Letter
[2025-03-29 23:09] VITALS: BP 120/77; PULSE 76; RESP 14; TEMP 37.3; O2SAT 100
[2025-03-29 23:12] LABS: Beta HCG,Quantitative 36371 mIU/mL (<5.0)
[2025-03-29 23:13] LABS: Hepatitis A Antibody IgM Non Reactive (Non React); Hepatitis B Core Antibody IgM Non Reactive (Non React); Hepatitis B Surface Antigen Non Reactive (Non React); Hepatitis C Antibody Non Reactive (Non React)
--- NOTE | 2025-03-30 00:01 | XR_ITS ---
Examination: Abdomen sonogram, Limited Date and time of exam: March 30, 2025, 0250 hours INDICATIONS: Abdominal pain back pain 1 week Technique: Real-time coleman scale transabdominal sonographic images of the upper abdomen obtained. Findings: Absent gallbladder Common bile duct 0.56 cm no stones Pancreas obscured by bowel gas Liver 13.27 cm no liver lesions Normal hepatopetal portal venous flow Patent IVC IMPRESSION: Absent gallbladder No common bile duct stones
[2025-03-30 00:43] LABS: Acetaminophen < 2.0 mcg/mL (10.0-20.0); Bilirubin,Direct 5.7 mg/dL (0.0-0.3)
--- NOTE | 2025-03-30 00:57 | XR_ITS ---
EXAMINATION: AP chest single view TECHNIQUE: AP portable upright chest single view Date and time: March 30, 2025, 0121 hours, comparison September 13, 2024 INDICATIONS: Coughing beginning 3 weeks ago FINDINGS: Normal heart size Lungs are clear. Osseous tractors are intact IMPRESSION: No active disease
--- NOTE | 2025-03-30 01:31 | PD.RESHP ---
Documentation for date of: 03/30/25 [facility] History of Present Illness History of present illness: Ms. Parker is a 20 y/o female with PMH cholecystectomy (w/ biliary stent placement?) who presented to the ED 03/29 with subjective fevers, chills, body aches, productive cough x 2-3 weeks and RUQ and suprapubic pain x 1 week with vaginal spotting i/s/o 7 weeks . Associated with scleral icterus, diffuse pruritus (which has occurred during previous pregnancies), and jaundice. Vomited once yesterday, denies hematemesis. Had one episode of abdominal distension that self-resolved. Denies diarrhea, constipation, melena, hematochezia, recent travel. Patient began having productive cough with yellow-green sputum, nasal congestion, diffuse myalgias, and subjective fevers 2-3 weeks ago. Her little sister has similar respiratory symptoms. She also has RUQ and b/l suprapubic pain associated with vaginal spotting x 1 week. The spotting was initially light then progressed to needing 2-3 pads per day for 1-2 days with abdominal cramping, then returned to light vaginal spotting. She took a test at home that was positive 7 weeks ago. This was an unplanned , though she is in a new monogamous relationship and used condoms. She has noticed increased thickened vaginal discharge, but she denies foul odor, vaginal pruritus, new genital lesions, or rashes. She was tested for STIs including HIV recently which were negative. The clinic that she follows with no longer accepts her insurance, so she has not sought care during this . She was recently given amox-clav, most likely for UTI though patient does not remember indication, which she took 3 doses of and stopped 5 days ago due to GI distress. Denies excess use of Tylenol, has not taken Tylenol for 7 weeks since she discovered she was . ED course: Afebrile (T max 99), tachycardic 105 self resolved to 76. Labs significant for hgb 11.8, HCT 34.7, AST 184, ALT 238, alk phos 642, total bili 7.1, direct bili 5.7. Lipase and amylase WNL. HCG 70534. COVID and flu negative. Hepatitis panel nonreactive. UA 1.038 specific gravity, 1+ protein, 4+ bilirubin, +LE, 7 RBC, 12 WBC, 6 squamous epithelium, rare bacteria. Pending urine cx. No meds given in ED. PMHx: Cholelithiasis, (vaginal births) Allergies: NKDA Home meds: Was taking amox-clav but stopped 2/2 GI distress SgHx: Cholecystectomy SHx: Denies smoking, recreational drug use. Occasional/social EtOH use, though complete cessation since finding out she was . Lives with her two toddlers. Her mother and sister live in [place]. 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 Is in a new monogamous relationship with partner. FHx: Mother - T2DM, brother - spina bifida Review of Systems Review of Systems Narrative Review of Systems: 14 point ROS negative other than HPI Exam Vital Signs Temp Pulse Resp BP Pulse Ox O2 Del Method 99.1 F 76 14 120/77 100 Room Air 03/29/25 23:09 03/29/25 23:09 03/29/25 23:09 03/29/25 23:09 03/29/25 23:09 03/29/25 23:09 Narrative Exam General: No acute distress, well nourished Eye: PERRL, EOMI, normal conjunctiva, scleral icterus HENT: Normocephalic, atraumatic, normal hearing, moist oral mucosa Neck: Supple, non-tender, no JVD, no lymphadenopathy Lungs: Decreased breath sounds left lower lung field, non-labored respirations, symmetric chest rise, no use of accessory muscles, spO2 appropriate on RA Heart: Normal S1 and S2, no S3 or S4 appreciated. Normal rate and regular rhythm, no murmurs, rubs gallops, or edema. Peripheral pulses intact bilaterally, capillary refill brisk distally Abdomen: Soft, nondistended. TTP RUQ, b/l suprapubic regions Musculoskeletal: Normal range of motion and strength, no tenderness or swelling Skin: Skin is warm, dry, no rashes or lesions. Jaundice Neurologic: Alert, awake and oriented x3. CN II-XII grossly intact. No focal neuro deficits. No signs of meningeal irritation noted. Psychiatric: Cooperative, appropriate mood and affect Results: Labs 03/30/25 04:34 03/30/25 12:15 Labs: Short CBC 03/29/25 Range/Units 17:27 WBC 7.3 (3.6-11.0) Thou/mm3 Hgb 11.8 L (12.0-16.0) g/dL Hct 34.7 L (36.0-46.0) % Plt Count 336 (140-440) Thou/mm3 BMP 03/29/25 17:27 Sodium 136 Potassium 3.6 Chloride 100 Carbon Dioxide 24.9 BUN < 5 L Creatinine 0.5 L Glucose 153 H Calcium 9.8 Liver Function 03/29/25 03/30/25 Range/Units 17: 00:00 Total Bilirubin 7.1 H (0.3-1.2) mg/dL Direct Bilirubin 5.7 H (0.0-0.3) mg/dL AST 184 H (0-34) U/L ALT 238 H (10-49) U/L Alkaline Phosphatase 642 H (46-116) U/L Albumin 4.6 (3.5-5.0) gm/dL Urine 03/29/25 Range/Units 17:22 Urine Color Drk-Yellow A (Lt Yel-Yel) Urine Clarity Clear (Clear/Hazy) Urine pH 7.0 (5.0-7.0) Ur Specific [place] 1.038 H (1.001-1.035) Urine Protein 1+ A (Neg - Trace) Urine Glucose (UA) Negative (Negative) Quality Measures Quality Measures none Medications Home Medications and Allergies Home Medications ?Medication ?Instructions ?Recorded ?Confirmed ?Type amoxicillin 875 mg-potassium 1 tab PO Q12H 03/30/25 03/30/25 History clavulanate 125 mg tablet Allergies Allergy/AdvReac Type Severity Reaction Status Date / Time No Known Allergies Allergy Verified 03/29/25 17:00 Visit Medications Ceftriaxone Sodium/Dextrose (Rocephin/D5w 1gm Iv Premix) 1 gm in 50 mls @ 100 mls/hr IV QDAY NAKITA Stop: 04/06/25 01:21 Ibuprofen (Ibuprofen Tab 600 Mg Tablet) 600 mg PO Q6H PRN PRN Reason: PAIN SCALE 1-3 (mild Stop: 04/29/25 00:54 Ibuprofen (Ibuprofen Tab 400 Mg Tablet) 400 mg PO Q6HR PRN PRN Reason: Fever > 100.3 Stop: 04/29/25 00:54 Ondansetron HCl (Ondansetron Inj 2 Mg/Ml Inj 2 Ml) 4 mg IVP Q6H PRN; Protocol PRN Reason: NAUSEA OR VOMITING Stop: 04/29/25 00:54 Discontinued Medications Acetaminophen (Acetaminophen 325 Mg Tablet) 650 mg PO Q6H PRN PRN Reason: Fever >100.3 Stop: 04/29/25 00:49 Acetaminophen (Acetaminophen 325 Mg Tablet) 650 mg PO Q6H PRN PRN Reason: PAIN SCALE 1-3 (mild Stop: 04/29/25 00:54 Assessment & Plan Plan Ms. Parker is a 20 y/o female with PMH cholecystectomy (w/ biliary stent placement?) who presented to the ED 03/29 with subjective fevers, chills, body aches, productive cough x 2-3 weeks and RUQ and suprapubic pain x 1 week with vaginal spotting i/s/o 7 weeks . Admitted for acute liver injury, vaginal bleeding i/s/o in 1st trimester. #Acute liver injury #Transaminitis #Direct hyperbilirubinemia #Bilirubinuria RUQ TTP, scleral icterus, jaundice, diffuse pruritus (pruritus present in previous pregnancies as well). Hx cholecystectomy. No encephalopathy AST 184, ALT 238, alk phos 642, Tbili 7.1, direct bili 5.7. Lipase and amylase WNL. No synthetic liver dysfunction Hepatitis panel non-reactive Acetaminophen level unremarkable Previous imaging in September 2024 showed absent gallbladder, CBG 0.7 cm with no stones. Mixed hepatocellular injury (ALT>AST) and cholestatic pattern (direct bili 5.7) DDX: cholestasis of , biliary obstruction, drug induced (amoxicillin), autoimmune Less likely cholangitis or choledocholithiasis given hx cholecystectomy with imaging afterwards (September 2024) showed no stones, no fever, but cannot be completely r/o at this time. Plan: - Pending RUQ US - Pending UDS, lipid panel, TSH, EtOH level, CARLOS, mitochondrial Ab, - Follow-up cocci serology and treat as warranted - Consulted GI, appreciate recs - CTM VS for fevers - CTM liver function with daily CMP - Can consider ursodeoxycholic acid for pruritus most likely 2/2 cholestasis - Can consider N-acetylcysteine if on formulary #Vaginal bleeding #, 1st trimester . Positive test 7 weeks ago. Had light vaginal bleeding that progressed to needing 2-3 pads per day for bleeding, returned to light vaginal spotting Current unplanned, no care, new monogamous relationship. Previous STI panel negative, was told to get re-tested given short length of relationship Suprapubic region TTP b/l Beta HCG 78571 Plan: - Consulted OBGYN (Dr. Sewell), appreciate recs - Consider transvaginal US - Pending GC/CT/VT, HIV #Upper respiratory symptoms 2-3 weeks subjective fever, chills, malaise, myalgia, congestion, productive cough COVID, flu negative CXR unremarkable Most likely viral Plan: - Supportive measures - pain management, encourage PO fluids - Pending cocci IgM and IgG #UTI Previously on amox-clav, did not complete course 2/2 GI distress. Denies urinary sx UA 1+ protein, 4+ bilirubin, +LE, 7 RBC, 12 WBC, 6 squamous epithelial cells, rare bacteria Plan: - Pending urine cx - Ceftriaxone 1 g IV daily #Normocytic anemia On admit hgb 11.8, HCT 34.7 i/s/o vaginal bleeding Plan: - Iron panel, ferritin, retic count Checklist Dispo: Admit to tele Diet: regular Bowel Reg: n/a VTE ppx: SCD, pt is mobile GI ppx: n/a Pain mgmt: Ibuprofen PO PRN Code status: full Plan discussed with Dr. Frances and Dr. Kaz Ceballos MD PGY1 Attending Provider Attestation/Addendum After examination of the patient and review of the clinical data I feel that this patient needs admission to the hospital for further treatment/evaluation. Plan of care discussed with patient and is in agreement. I Jose Mccurdy MD, attest that I was physically present for mcmullen portions of evaluation, and examined patient, labs and imagings and plan of care were discussed with IM residents team, and I agree with the findings and plans documented above.
[2025-03-30 01:55] LABS: INR 1.0 (0.9-1.3); Partial Thromboplastin Time 28.0 Seconds (22.0-36.0); Prothrombin Time 10.3 Seconds (9.0-12.2)
[2025-03-30] MEDS: cefTRIAXone/D5w 1gm IV premix 1 GM/50 ML BAG IV ×2 (02:05→09:14)
[2025-03-30 02:57] LABS: Alcohol, Blood Medical < 3.0 mg/dL (0-10.0)
[2025-03-30 03:07] LABS: Amphetamine/Methamp Scrn,U Negative (Negative); Barbiturate Screen,Urine Negative (Negative); Benzodiazepines Screen,Urine Negative (Negative); Benzoylecgonine Screen, Ur Negative (Negative); Fentanyl Screen,Urine Negative (Negative); Opiate Screen,Urine Negative (Negative); THC Screen,Urine Negative (Negative)
[2025-03-30 03:08] LABS: HIV (1&2) Antibody Rapid Non-Reactive
[2025-03-30 03:14] VITALS: BP 105/69; PULSE 75; RESP 17; TEMP 37.1; O2SAT 98
--- NOTE | 2025-03-30 03:56 | PRELIM_ITS ---
Ultrasound liver. March 30, 2025 at 0250 hours Clinical history: Transaminitis, elevated Tbili, right upper quadrant pain. Comparison: No prior study is available for comparison. Findings: The liver measures 13.3 cm in length and demonstrates normal echotexture with no focal mass, cyst, or intrahepatic biliary ductal dilatation. The main portal vein demonstrates normal hepatopetal flow. The gallbladder is absent (post-cholecystectomy). The common bile duct measures 6 mm in diameter and is within normal limits for post cholecystectomy, with no intraluminal stones identified. The pancreas was not well visualised due to overlying bowel gas. The inferior vena cava is patent. No ascites or perihepatic fluid is demonstrated. Impression: 1. Status post cholecystectomy. 2. Normal sonographic appearance of the liver and biliary tree. 3. No evidence of biliary obstruction or hepatic lesion. Report Electronically Signed By: Georges Campbell 03/30/2025 3:55:08 AM [EST]
[2025-03-30 05:19] LABS: Basophils # (Auto) 0.0 Thou/mm3 (0.0-0.2); Basophils % (Auto) 0 % (0-2.5); Eosinophils # (Auto) 0.2 Thou/mm3 (0.0-0.5); Eosinophils % (Auto) 4 % (0-10); Hematocrit 31.0 % (36.0-46.0); Hemoglobin 10.8 g/dL (12.0-16.0); Immature Granulocytes Auto 0.01 Thou/mm3 (0.00-0.00); Lymphocytes # (Auto) 2.0 Thou/mm3 (1.0-4.8); Lymphocytes % (Auto) 37 % (10-50); Mean Corpuscular HGB Conc 34.8 g/dl (31.0-37.0); Mean Corpuscular Hemoglobin 29.2 pg (25.0-35.0); Mean Corpuscular Volume 84 fL (80-100); Monocytes # (Auto) 0.6 Thou/mm3 (0.0-0.8); Monocytes % (Auto) 11 % (0-12); Neutrophils # (Auto) 2.6 Thou/mm3 (1.8-7.7); Neutrophils % (Auto) 48 % (37-80); Nucleated Red Blood Cell # 0.00 Thou/mm3 (0.00-0.00); Nucleated Red Blood Cell % 0 /100 WBC (0); Platelet Count 288 Thou/mm3 (140-440); RDW Standard Deviation 36.2 fL (36.4-46.3); Red Blood Count 3.70 Miln/mm3 (4.00-5.20); White Blood Count 5.3 Thou/mm3 (3.6-11.0)
--- NOTE | 2025-03-30 05:40 | XR_ITS ---
Examination: OB Transvaginal ultrasound of the pelvis, complete Technique: Transvaginal sonographic images pelvis performed using coleman scale imaging Exam date and time: March 22, 2025, 0807 hours INDICATIONS: Unknown size and dates, early by history FINDINGS: Uterus 8.5 cm CRL 0.5 cm corresponds to 6 weeks 1 day gestational age. Cardiac motion 125 bpm Right ovary 2.2 cm arterial flow 9 mm follicular cyst Left ovary 2.6 cm arterial flow IMPRESSION: Viable intrauterine gestation 6 weeks 1 day.
[2025-03-30 05:46] LABS: Ferritin 121 ng/mL (7.3-270.7); Iron 61 mcg/dL (50-170); Percent Iron Saturation 20 % (20-55); Total Iron Binding Capacity 297 mcg/dL (250-425); Unsaturated Iron Binding 236 (225-295)
[2025-03-30 05:47] LABS: Alanine Aminotransferase 197 U/L (10-49); Albumin, Serum 4.2 gm/dL (3.5-5.0); Albumin/Globulin Ratio 1.8 (1.2-2.2); Alkaline Phosphatase 567 U/L (46-116); Anion Gap 11 (7-16); Aspartate Amino Transferase 132 U/L (0-34); BUN/Creatinine Ratio 10 Ratio (12-20); Bilirubin,Total 7.7 mg/dL (0.3-1.2); Blood Urea Nitrogen < 5 mg/dL (9-23); Calcium 9.1 mg/dL (8.3-10.6); Calcium (Corrected) 9.1 mg/dL (8.5-10.1); Carbon Dioxide 26.0 mMol/L (20.0-31.0); Cardiac Risk Estimate 4.9 RATIO (3.7-5.6); Chloride 103 mMol/L (98-107); Cholesterol 148 mg/dL (132-200); Creatinine (Component) 0.5 mg/dL (0.6-1.3); Estimated Creatinine Clearance 168.7 mL/min (>60); Globulin 2.4 gm/dL (2.3-3.5); Glucose 164 mg/dL (74-106); HDL Cholesterol 30 mg/dL (40-60); LDL Cholesterol,Calculated 99 mg/dL (0-130); Magnesium 2.1 mg/dL (1.6-2.6); Osmolality,Calculated 280 (275-295); Potassium 3.1 mMol/L (3.4-5.1); Sodium 140 mMol/L (136-145); Thyroid Stimulating Hormone 0.73 uIU/mL (0.55-4.78); Total Protein 6.6 gm/dL (5.7-8.2); Triglycerides 93 mg/dL (30-150); eGFR > 60 See Note
[2025-03-30 06:10] VITALS: BP 112/59; PULSE 68; RESP 12; TEMP 36.3; O2SAT 98
--- NOTE | 2025-03-30 06:22 | ESCONSULT_ITS ---
PROJECT CONSTRUCTION MANAGER HPI Data of Consult Patient: new to practice Consult date: 03/30/25 Requesting Physician: Jose Mccurdy MD Primary Care Provider: Bernard Chaudhari MD Consult Narrative History of present illness: The patient is a 20 y/o at 7 weeks EGA with hx cholecystectomy in [place] in September 2024. Patient states she had some type of stone lodged in a duct and the doctor placed some type of stent in that was supposed to be removed but is still in place. She presented to the ED 03/29 with subjective fevers, chills, body aches, productive cough x 2-3 weeks and RUQ , suprapubic pain x 1 and some vaginal bleeding. She reports scleral icterus, diffuse pruritus (which has occurred during previous pregnancies), and jaundice. She vomited once yesterday, denies hematemesis. Had one episode of abdominal distension that self-resolved. Denies diarrhea, constipation, melena, hematochezia, recent travel. Patient began having a productive cough with yellow-green sputum, nasal congestion, diffuse myalgias, and subjective fevers 2-3 weeks ago. Her little sister has similar respiratory symptoms. She also has RUQ and b/l suprapubic pain associated with vaginal spotting x 1 week. The spotting was initially light then progressed to needing 2-3 pads per day for 1-2 days with abdominal cramping, then returned to light vaginal spotting. She took a test at home that was positive 7 weeks ago. This was an unplanned , though she is in a new monogamous relationship and used condoms. She has noticed increased thickened vaginal discharge, but she denies foul odor, vaginal pruritus, new genital lesions. BIOMEDICAL ENGINEERING TECHNOLOGIST is consulted to follow along for her early . Patient states she had a baby 3 years ago vaginally at 34 weeks. Baby weighed 5 pounds. She denies any transfusion other problems. She delivered another baby 1 year ago at 28 weeks who weighed 3 pounds. She denies any transfusions or other problems with that delivery. That delivery was in [place]. Patient has not had an ultrasound to confirm location or viability of the and this was ordered stat. Blood type is Rh+. cc:: cc: Jose Mccurdy MD Past Medical History Past Medical History Comments PMH COMMENT: Patient denies chronic medical problems including asthma diabetes or hypertension She has had 2 early vaginal deliveries, one at 34 weeks, one at 28 weeks Patient denies any surgeries besides her laparoscopic cholecystectomy in September 2024 with a surgeon in [place]. Patient states she has some type of stent placed in her liver because she had embedded stones. This was supposed to be removed but is still in place. Meds Home Medications and Allergies Home Medications ?Medication ?Instructions ?Recorded ?Confirmed ?Type amoxicillin 875 mg-potassium 1 tab PO Q12H 03/30/25 History clavulanate 125 mg tablet Allergies Allergy/AdvReac Type Severity Reaction Status Date / Time No Known Allergies Allergy Verified 03/29/25 17:00 Exam - PROJECT CONSTRUCTION MANAGER Vital Signs Temp Pulse Resp BP Pulse Ox O2 Del Method 98.7 F 75 17 105/69 98 Room Air 03/30/25 03:14 03/30/25 03:14 03/30/25 03:14 03/30/25 03:14 03/30/25 03:14 03/30/25 03:14 Narrative Exam Patient is alert and oriented x 3, she is cooperative Constitutional Constitutional: no acute distress, thin and cooperative Routine HEENT Exam Comments: + scleral icterus Routine Abdominal Exam Abdominal: Present soft and surgical scars Comments: Abdomen soft nondistended nontender she has scars from her laparoscopic cholecystectomy PROJECT CONSTRUCTION MANAGER - Results Labs 03/30/25 04:34 03/30/25 04:34 Labs: Short CBC 03/29/25 03/30/25 Range/Units 17:27 04:34 WBC 7.3 5.3 (3.6-11.0) Thou/mm3 Hgb 11.8 L 10.8 L (12.0-16.0) g/dL Hct 34.7 L 31.0 L (36.0-46.0) % Plt Count 336 288 D (140-440) Thou/mm3 BMP 03/29/25 03/30/25 17:27 04:34 Sodium 136 140 Potassium 3.6 3.1 L D Chloride 100 103 Carbon Dioxide 24.9 26.0 BUN < 5 L < 5 L Creatinine 0.5 L 0.5 L Glucose 153 H 164 H Calcium 9.8 9.1 Liver Function 03/29/25 03/30/25 03/30/25 Range/Units 17:27 00:00 04:34 Total Bilirubin 7.1 H 7.7 H D (0.3-1.2) mg/dL Direct Bilirubin 5.7 H (0.0-0.3) mg/dL AST 184 H 132 H (0-34) U/L ALT 238 H 197 H (10-49) U/L Alkaline Phosphatase 642 H 567 H D (46-116) U/L Albumin 4.6 4.2 (3.5-5.0) gm/dL Urine 03/29/25 Range/Units 17:22 Urine Color Drk-Yellow A (Lt Yel-Yel) Urine Clarity Clear (Clear/Hazy) Urine pH 7.0 (5.0-7.0) Ur Specific [place] 1.038 H (1.001-1.035) Urine Protein 1+ A (Neg - Trace) Urine Glucose (UA) Negative (Negative) Assessment and Plan Assessment and plan (1) Acute hepatitis: Status: Acute (2) Early stage of : Status: Acute Assessment and plan: Quantitative hCG around 36,000. Blood type O+. Check stat TV ultrasound to check for location and viability of . Ordered. Recommend vaginitis panel as patient is having some discharge Would check bile acids total and fractionated. Will follow along for questions as needed.
[2025-03-30] MEDS: POTASSIUM CHLORIDE 10% 20 MEQ/15 ML UDC 40 MEQ PO (07:37)
[2025-03-30 08:00] VITALS: BP 92/67; PULSE 52; PULSE 83; RESP 16; TEMP 36.7; O2SAT 100
--- NOTE | 2025-03-30 10:08 | PC.SS ---
Patient Kathrine Parker is a 20 Year old female admitted for Acute Liver Injury. SS met with patient at bedside to discuss discharge planning and verify demographic information. patient reports she is able to complete all ADL's independently Patient does not utilize any source of DME to assist with ambulation. Patient reports his surrogate decision maker is her mother, Alexandrea Leslie [phone]. Patient reports her PCP is Bernard Chaudhari and Choice of pharmacy is [facility]. At time of discharge patient will discharge back home, SS will need to assist with transportation. Discharge plan: Home Next of kin: Mother, Alexandrea Leslie
[2025-03-30 10:45] LABS: Chlamydia trachomatis PCR Negative (Not Detect); Neisseria Gonorrhoeae DNA PCR Negative (Not Detect); Trichomonas Negative (Negative)
--- NOTE | 2025-03-30 11:15 | ESCONSULT_ITS ---
HPI Data of Consult Requesting Physician: Dorene Hill MD Admitting Provider: Jose Mccurdy MD Attending Provider: Dorene Hill MD Primary Care Provider: Bernard Chaudhari MD Consult Narrative Reason for consult: Jaundice History of present illness: HPI: A 20-year-old female 3 para 2 patient with past medical history of reportedly jaundice and itching during pregnancies, gallbladder removal complicated by common bile duct retained stone in 2024, came to the ED due to acute right upper quadrant pain for 2 days associated with few episodes of vomiting. Patient reported that the pain is stabbing in nature with no radiation. She reported also jaundice and itching of her palms and legs. Patient reported that she was unable to keep anything in her stomach however she denied any hematemesis. She also reported during the pain episodes that she was bloated and had abdominal distention. She reported for the past few days she has been having constipation however denied any hematochezia. Or rectal pain. Few weeks ago patient reported that she had some episodes of upper respiratory tract infection symptoms including dry cough especially at night runny nose, nasal congestion and mild shortness of breath and which she was prescribed Augmentin and she only took 3 tablets and could not tolerate due to gastric upset. She reported that her shortness of breath has resolved however she still has some episodes of Specially when she talks. On review of other system patient reported that she had vaginal discharge, clear in nature, not offensive, she underwent for STD screening panel by her PCP in which came back negative. Of note patient reported that in August 2024 she had similar pain and jaundice, underwent gallbladder removal in which it was complicated by retained common bile duct stones and she had to go for stent placement. Patient reported that she was instructed to come to follow-up after 2 weeks from the stent placement however she never went and was unable to get an appointment. This procedure was done in [place]. Clinical course: Presentation patient vital signs all within normal limits except heart rate was 105, Labs showed WBC of 7.3, hemoglobin of 11.8, platelets of 336 coagulation panel was normal, CMP initially was only significant for total bilirubin of 7.1, direct bilirubin 5.7, AST was 184, ALT 38, alkaline phosphatase was 642. Urine showed positive ketones positive for bilirubin WBC of 12 RBC of 7 and 6 squamous epithelium which indicate it was a poor sample toxicology screening was negative including acetaminophen and acute hepatitis panel were negative. STD panel including chlamydia trichomonas and gonorrhea are all negative. Ultrasound showed absent gallbladder, no common bile duct stones. Common bile duct diameter is 0.56 chest x-ray was negative for any active disorder, and transvaginal ultrasound showed gestational age of 6 weeks and 1 day viable intrauterine. PRACTICE CONSULTANT Dr Sewell was consulted she ordered for the patient bile acids levels which are still pending PMH:As above Social hx: Alcohol: Denied Tobacco:Denied Illicit drugs: Denied Allergies: No known allergy cc:: cc: Dorene Hill MD Review of Systems Review of Systems Systems Reviewed: All systems reviewed, normal except as documented Exam Vital Signs Temp Pulse Resp BP Pulse Ox O2 Del Method 98.0 F 52 L 16 92/67 100 Room Air 03/30/25 08:00 03/30/25 08:00 03/30/25 08:00 03/30/25 08:00 03/30/25 08:00 03/30/25 08:00 Narrative Exam GEN: AOx3, able to speak full sentences HEENT: NC/AC, icteric, oral mucosa moist, neck supple CVS: RRR, S1-S2 present, no murmurs appreciated RESP: CTAB GI: soft,non distended, mild discomfort at the right upper quadrant area, NBS MSK: able to move all 4 limbs, no lower extremity edema SKIN: warm and dry CURING MACHINE OPERATOR: CN II-XII and Sensation grossly intact. Results Labs 03/30/25 04:34 03/30/25 12:15 Labs: Short CBC 03/29/25 03/30/25 Range/Units 17:27 04:34 WBC 7.3 5.3 (3.6-11.0) Thou/mm3 Hgb 11.8 L 10.8 L (12.0-16.0) g/dL Hct 34.7 L 31.0 L (36.0-46.0) % Plt Count 336 288 D (140-440) Thou/mm3 BMP 03/29/25 03/30/25 17:27 04:34 Sodium 136 140 Potassium 3.6 3.1 L D Chloride 100 103 Carbon Dioxide 24.9 26.0 BUN < 5 L < 5 L Creatinine 0.5 L 0.5 L Glucose 153 H 164 H Calcium 9.8 9.1 Liver Function 03/29/25 03/30/25 03/30/25 Range/Units 17:27 00:00 04:34 Total Bilirubin 7.1 H 7.7 H D (0.3-1.2) mg/dL Direct Bilirubin 5.7 H (0.0-0.3) mg/dL AST 184 H 132 H (0-34) U/L ALT 238 H 197 H (10-49) U/L Alkaline Phosphatase 642 H 567 H D (46-116) U/L Albumin 4.6 4.2 (3.5-5.0) gm/dL Urine 03/29/25 Range/Units 17:22 Urine Color Drk-Yellow A (Lt Yel-Yel) Urine Clarity Clear (Clear/Hazy) Urine pH 7.0 (5.0-7.0) Ur Specific [place] 1.038 H (1.001-1.035) Urine Protein 1+ A (Neg - Trace) Urine Glucose (UA) Negative (Negative) Quality Measures Quality Measures none Medications Home Medications and Allergies Home Medications ?Medication ?Instructions ?Recorded ?Confirmed ?Type amoxicillin 875 mg-potassium 1 tab PO Q12H 03/30/25 History clavulanate 125 mg tablet Allergies Allergy/AdvReac Type Severity Reaction Status Date / Time No Known Allergies Allergy Verified 03/29/25 17:00 Visit Medications Diphenhydramine HCl (Diphenhydramine Elix 25 Mg/10 Ml Udc) 25 mg PO Q4HR PRN PRN Reason: nausea or headache Stop: 04/29/25 10:02 Ceftriaxone Sodium/Dextrose (Rocephin/D5w 1gm Iv Premix) 1 gm in 50 mls @ 100 mls/hr IV QDAY NAKITA Stop: 04/06/25 01:21 Last Admin: 03/30/25 09:14 Dose: 100 mls/hr Influenza Virus Vaccine Quadrival (Influenza Virus Trivalent 0.5 Ml Syringe) 0.5 ml IMi .ONCE ONE Stop: 03/30/25 06:21 Pharmacy Consult (Pharmacy To Consult Patient) 1 each XX PRN PRN PRN Reason: CONSULT Stop: 04/29/25 10:00 Pyridoxine HCl (Pyridoxine 50 Mg Tablet) 25 mg PO Q6HR PRN PRN Reason: NAUSEA OR VOMITING Stop: 04/29/25 07:55 Discontinued Medications Acetaminophen (Acetaminophen 325 Mg Tablet) 650 mg PO Q6H PRN PRN Reason: Fever >100.3 Stop: 04/29/25 00:49 Acetaminophen (Acetaminophen 325 Mg Tablet) 650 mg PO Q6H PRN PRN Reason: PAIN SCALE 1-3 (mild Stop: 04/29/25 00:54 Diphenhydramine HCl (Diphenhydramine Elix 25 Mg/10 Ml Udc) 25 mg PO Q4HR PRN PRN Reason: RASH Stop: 04/29/25 10:02 Ibuprofen (Ibuprofen Tab 600 Mg Tablet) 600 mg PO Q6H PRN PRN Reason: PAIN SCALE 1-3 (mild Stop: 04/29/25 00:54 Ibuprofen (Ibuprofen Tab 400 Mg Tablet) 400 mg PO Q6HR PRN PRN Reason: Fever > 100.3 Stop: 04/29/25 00:54 Ondansetron HCl (Ondansetron Inj 2 Mg/Ml Inj 2 Ml) 4 mg IVP Q6H PRN; Protocol PRN Reason: NAUSEA OR VOMITING Stop: 04/29/25 00:54 Pharmacy Consult (Pharmacy To Consult Patient) 1 each XX PRN PRN PRN Reason: CONSULT Stop: 03/30/25 07:51 Potassium Chloride (Potassium Chloride 10% 20 Meq/15 Ml Udc) 40 meq PO X1 ONE Stop: 03/30/25 07:03 Last Admin: 03/30/25 07:37 Dose: 40 meq Potassium Chloride (Potassium Chloride 20 Meq Tabcr) 40 meq PO X1 ONE Stop: 03/30/25 09:01 Last Admin: 03/30/25 09:14 Dose: 40 meq Assessment & Plan Plan Summary:A 20-year-old female 3 para 2 patient with past medical history of reportedly jaundice and itching during pregnancies, gallbladder removal complicated by common bile duct retained stone in 2024, came to the ED due to acute right upper quadrant pain for 2 days associated with few episodes of vomiting. Patient was admitted for management of acute hepatitis #Acute liver injury #Common bile duct stent blockage rule out #Cholestasis of rule out #Early 6weeks DDx: Medication side effect Augmentin, cholestasis of versus common bile duct stent blockage, atypical viral hepatitis patient reported that in August 2024 she had similar pain and jaundice, underwent gallbladder removal in which it was complicated by retained common bile duct stones and she had to go for stent placement. Stent still not removed this procedure was done in [place]. Of note patient had similar episode with previous pregnancies that visit resolved after delivery. Patient has new sexual partner for the last month, the use condom consistent WBC of 7.3, hemoglobin of 11.8, platelets of 336 coagulation panel was normal, CMP initially was only significant for total bilirubin of 7.1, and uptrend to 7.7 direct bilirubin 5.7. Which indicate mixed picture of cholestasis and less likely to be a cholestasis of ., AST was 184, ALT 38, alkaline phosphatase was 642. Urine showed positive ketones positive for bilirubin WBC of 12 RBC of 7 and 6 squamous epithelium which indicate it was a poor sample. Toxicology screening was negative including acetaminophen and acute hepatitis panel were negative. STD panel including chlamydia trichomonas and gonorrhea are all negative. Ultrasound showed absent gallbladder, no common bile duct stones. Common bile duct diameter is 0.56. Chest x-ray was normal with no active disease Plan ? Follow-up on the bile acids level that was ordered by the PRACTICE CONSULTANT specialist Dr Sewell ? Daily CMP monitoring ? We may consider MRCP/ERCP to rule out stent blockage and remove the stent ? Obtain medical records from [place] ? Follow-up on the autoimmune hepatitis panel, cocci screening. ? CMV, EBV, herpes simplex ? Follow-up with the PRACTICE CONSULTANT for the need of ursodeoxycholic acid treatment especially if bile acids levels come back elevated. Avoid toxicity. Thank you for your consultation, please do not hesitate to reach out if you have any question or concern - Patient's plan and care discussed with my attending, Dr. Clay Sosa MD Internal Medicine PGY-3 Attending Provider Attestation/Addendum Patient evaluated Imaging studies reviewed Laboratory data reviewed went over the assessment of internal medicine resident Patient should have an MRCP prior to making any decision And if obstruction is confirmed, as per my colleague Dr. Caballero who does the ERCPs His recommendation is to transfer the patient to a tertiary center where she can be handled better Thank you for the opportunity to participate in the care of this patient
[2025-03-30 12:00] VITALS: BP 99/67; PULSE 62; PULSE 87; RESP 17; TEMP 36.1; O2SAT 100
[2025-03-30 12:40] LABS: Misc Send Out* See Sep Rpt
[2025-03-30 13:13] LABS: Albumin, Serum 4.8 gm/dL (3.5-5.0); Anion Gap 10 (7-16); BUN/Creatinine Ratio 8 Ratio (12-20); Blood Urea Nitrogen < 5 mg/dL (9-23); Calcium 9.7 mg/dL (8.3-10.6); Calcium (Corrected) 9.7 mg/dL (8.5-10.1); Carbon Dioxide 25.8 mMol/L (20.0-31.0); Chloride 104 mMol/L (98-107); Creatinine (Component) 0.6 mg/dL (0.6-1.3); Estimated Creatinine Clearance 140.6 mL/min (>60); Glucose 123 mg/dL (74-106); Osmolality,Calculated 277 (275-295); Phosphorous 3.5 mg/dL (2.4-5.1); Potassium 4.1 mMol/L (3.4-5.1); Sodium 140 mMol/L (136-145); eGFR > 60 See Note
[2025-03-30 14:25] LABS: Cocci Serology, IgM Positive (Negative)
[2025-03-30 14:26] LABS: Cocid Sro, CF/ID (UCD) NO CHG* See Sep Rpt
[2025-03-30 16:00] VITALS: BP 102/68; PULSE 57; PULSE 66; RESP 15; TEMP 36.3; O2SAT 100
--- NOTE | 2025-03-30 16:14 | PD.RESPRO ---
Documentation for date of: 03/30/25 Patient is a 20-year-old female who is currently 7 weeks with a recent past medical history of cholecystectomy status post biliary stent (August 2024?) who presented overnight with chief complaints of subjective fevers chills and body-aches. Patient was admitted with acute liver injury and elevated total bilirubin of 7.1 and direct 5.7. with vaginal bleeding s/p 1 trimester in . Gastroenterology consulted and OBGYN consulted. Acute liver injury with hyperbilirubinemia concerning for stent obstruction given history of cholestectomy with stent vs fatty liver during vs hemolysis less likely given direct bilirubin. BARREL DEDENTING MACHINE OPERATOR consulted and trans-vaginal US ordered. Concern for dry cough. Pending Cocci. UTI Ceftriaxone 1 gram IV daily started on 03/30/2025. Continue to monitor for pyrexia, total bilirubin, and AST/ALT. Senior Resident Attestation: I have discussed the case with supervising physician and international trade teacher physician involved in the care of patient. I personally saw and examined patient and discussed the assessment and plan with the entire medical team, including attending. I agree with assessment and plan as documented below. - The patient's plan was discussed with attending Dr. Sergio Anthony MD PGY2 Internal Medicine Subjective Subjective Interval history: Pending MRCP Patient examined bedside, labs reviewed. reports itchy palms and arms, feeling tremulous but not cold, some nasuea but no vomiting. She has an ongoing minor bilateral headache that wraps around her head, without visual changes. Exam Vital Signs Temp Pulse Resp BP Pulse Ox O2 Del Method 96.9 F 62 17 99/67 100 Room Air 03/30/25 12:00 03/30/25 12:00 03/30/25 12:00 03/30/25 12:00 03/30/25 12:00 03/30/25 12:00 Narrative Exam General: No acute distress, well nourished Eye: PERRL, EOMI, normal conjunctiva, scleral icterus, mucosal darkening HENT: Normocephalic, atraumatic, normal hearing, moist oral mucosa Neck: Supple, non-tender, no JVD, no lymphadenopathy Lungs: CTA, non-labored respirations, symmetric chest rise, no use of accessory muscles, spO2 appropriate on RA Heart: Normal S1 and S2, no S3 or S4 appreciated. Normal rate and regular rhythm, no murmurs, rubs gallops, or edema. Peripheral pulses intact bilaterally, capillary refill brisk distally Abdomen: Soft, nondistended, NBS, TTP b/l suprapubic regions Musculoskeletal: Normal range of motion and strength, no tenderness or swelling Skin: Skin is warm, dry, no rashes or lesions. Jaundice Neurologic: Alert, awake and oriented x3. CN II-XII grossly intact. No focal neuro deficits. No signs of meningeal irritation noted. Psychiatric: Cooperative, appropriate mood and affect Objective Labs 04/01/25 05:30 04/01/25 05:30 Labs: Laboratory Results - last 24 hr 03/29/25 03/29/25 03/29/25 17:15 17:22 17:24 WBC RBC Hgb Hct MCV MCH MCHC RDW Std Deviation Plt Count Neut % (Auto) Lymph % (Auto) [place] % (Auto) Eos % (Auto) Baso % (Auto) Neut # (Auto) Lymph # (Auto) [place] # (Auto) Eos # (Auto) Baso # (Auto) Immature Gran # (Auto) Absolute Nucleated RBC Immature Gran % Nucleated RBC % PT 10.3 INR 1.0 APTT 28.0 Sodium Potassium Chloride Carbon Dioxide Anion Gap BUN Creatinine Estim Creat Clear Calc eGFR BUN/Creatinine Ratio Glucose Calculated Osmolality Calcium Corrected Calcium Phosphorus Magnesium Iron TIBC Iron Saturation Unsat Iron Binding Ferritin Total Bilirubin Direct Bilirubin AST ALT Alkaline Phosphatase Total Protein Albumin Globulin Albumin/Globulin Ratio Triglycerides Cholesterol LDL Cholesterol, Calc HDL Cholesterol Cholesterol/HDL Ratio Lipase TSH Beta HCG, Quant Ur Collection Type Clean Catch Urine Color Drk-Yellow A Urine Clarity Clear Urine pH 7.0 Ur Specific [place] 1.038 H Urine Protein 1+ A Urine Glucose (UA) Negative Urine Ketones 1+ A Urine Blood Negative Urine Nitrite Negative Urine Bilirubin 4+ A Urine Urobilinogen (Auto) 8.0 Ur Leukocyte Esterase Positive Urine RBC 7 H Urine WBC 12 H Ur Squamous Epith Cells 6 H Urine Bacteria Rare Urine Opiates Screen Negative Urine Fentanyl Screen Negative Acetaminophen Ur Barbiturates Screen Negative U Amphetamin/Meth Scrn Negative U Benzodiazepines Scrn Negative U Cocaine Metab Screen Negative U Marijuana (THC) Screen Negative Ethyl Alcohol Chlam trachomat DNA PCR Negative Coccidioides IgM Ab Hepatitis A IgM Ab Hep Bs Antigen Hep B Core IgM Ab Hepatitis C Antibody HIV 1&2 Antibody Rapid Influenza A (Rapid) Negative Influenza B (Rapid) Negative N.gonorrhoeae DNA (PCR) Negative Trichomonas DNA Probe Negative 03/29/25 03/29/25 03/30/25 17:27 23:11 00:00 WBC 7.3 RBC 4.17 Hgb 11.8 L Hct 34.7 L MCV 83 MCH 28.3 MCHC 34.0 RDW Std Deviation 36.0 L Plt Count 336 Neut % (Auto) 80 Lymph % (Auto) 12 [place] % (Auto) 7 Eos % (Auto) 0 Baso % (Auto) 0 Neut # (Auto) 5.8 Lymph # (Auto) 0.9 L [place] # (Auto) 0.5 Eos # (Auto) 0.0 Baso # (Auto) 0.0 Immature Gran # (Auto) 0.02 H Absolute Nucleated RBC 0.00 Immature Gran % 0 Nucleated RBC % 0 PT INR APTT Sodium 136 Potassium 3.6 Chloride 100 Carbon Dioxide 24.9 Anion Gap 11 BUN < 5 L Creatinine 0.5 L Estim Creat Clear Calc 168.7 eGFR > 60 BUN/Creatinine Ratio 10 L Glucose 153 H Calculated Osmolality 272 L Calcium 9.8 Corrected Calcium 9.8 Phosphorus Magnesium Iron TIBC Iron Saturation Unsat Iron Binding Ferritin Total Bilirubin 7.1 H Direct Bilirubin 5.7 H AST 184 H ALT 238 H Alkaline Phosphatase 642 H Total Protein 7.7 Albumin 4.6 Globulin 3.1 Albumin/Globulin Ratio 1.5 Triglycerides Cholesterol LDL Cholesterol, Calc HDL Cholesterol Cholesterol/HDL Ratio Lipase 20 TSH Beta HCG, Quant 71832 Ur Collection Type Urine Color Urine Clarity Urine pH Ur Specific [place] Urine Protein Urine Glucose (UA) Urine Ketones Urine Blood Urine Nitrite Urine Bilirubin Urine Urobilinogen (Auto) Ur Leukocyte Esterase Urine RBC Urine WBC Ur Squamous Epith Cells Urine Bacteria Urine Opiates Screen Urine Fentanyl Screen Acetaminophen < 2.0 L Ur Barbiturates Screen U Amphetamin/Meth Scrn U Benzodiazepines Scrn U Cocaine Metab Screen U Marijuana (THC) Screen Ethyl Alcohol < 3.0 Chlam trachomat DNA PCR Coccidioides IgM Ab Positive A Hepatitis A IgM Ab Non Reactive Hep Bs Antigen Non Reactive Hep B Core IgM Ab Non Reactive Hepatitis C Antibody Non Reactive HIV 1&2 Antibody Rapid Non-Reactive Influenza A (Rapid) Influenza B (Rapid) N.gonorrhoeae DNA (PCR) Trichomonas DNA Probe 03/30/25 03/30/25 04:34 12:15 WBC 5.3 RBC 3.70 L Hgb 10.8 L Hct 31.0 L MCV 84 MCH 29.2 MCHC 34.8 RDW Std Deviation 36.2 L Plt Count 288 D Neut % (Auto) 48 Lymph % (Auto) 37 [place] % (Auto) 11 Eos % (Auto) 4 Baso % (Auto) 0 Neut # (Auto) 2.6 Lymph # (Auto) 2.0 [place] # (Auto) 0.6 Eos # (Auto) 0.2 Baso # (Auto) 0.0 Immature Gran # (Auto) 0.01 H Absolute Nucleated RBC 0.00 Immature Gran % 0 Nucleated RBC % 0 PT INR APTT Sodium 140 140 Potassium 3.1 L D 4.1 D Chloride 103 104 Carbon Dioxide 26.0 25.8 Anion Gap 11 10 BUN < 5 L < 5 L Creatinine 0.5 L 0.6 Estim Creat Clear Calc 168.7 140.6 eGFR > 60 > 60 BUN/Creatinine Ratio 10 L 8 L Glucose 164 H 123 H Calculated Osmolality 280 277 Calcium 9.1 9.7 Corrected Calcium 9.1 9.7 Phosphorus 3.5 Magnesium 2.1 Iron 61 TIBC 297 Iron Saturation 20 Unsat Iron Binding 236 Ferritin 121 Total Bilirubin 7.7 H D Direct Bilirubin AST 132 H ALT 197 H Alkaline Phosphatase 567 H D Total Protein 6.6 Albumin 4.2 4.8 D Globulin 2.4 Albumin/Globulin Ratio 1.8 Triglycerides 93 Cholesterol 148 LDL Cholesterol, Calc 99 HDL Cholesterol 30 L Cholesterol/HDL Ratio 4.9 Lipase TSH 0.73 Beta HCG, Quant Ur Collection Type Urine Color Urine Clarity Urine pH Ur Specific [place] Urine Protein Urine Glucose (UA) Urine Ketones Urine Blood Urine Nitrite Urine Bilirubin Urine Urobilinogen (Auto) Ur Leukocyte Esterase Urine RBC Urine WBC Ur Squamous Epith Cells Urine Bacteria Urine Opiates Screen Urine Fentanyl Screen Acetaminophen Ur Barbiturates Screen U Amphetamin/Meth Scrn U Benzodiazepines Scrn U Cocaine Metab Screen U Marijuana (THC) Screen Ethyl Alcohol Chlam trachomat DNA PCR Coccidioides IgM Ab Hepatitis A IgM Ab Hep Bs Antigen Hep B Core IgM Ab Hepatitis C Antibody HIV 1&2 Antibody Rapid Influenza A (Rapid) Influenza B (Rapid) N.gonorrhoeae DNA (PCR) Trichomonas DNA Probe Quality Measures Quality Measures none Assessment & Plan Assessment Current Active Medications: Generic Name Dose Route Start Last Admin Trade Name Freq PRN Reason Stop Dose Admin Diphenhydramine HCl 25 mg 03/30/25 10:21 Diphenhydramine Elix 25 Mg/10 Ml Udc PO 04/29/25 10:02 Q4HR PRN nausea or headache Ceftriaxone Sodium/Dextrose 1 gm in 50 mls @ 100 mls/hr 03/30/25 01:22 03/30/25 09:14 Rocephin/D5w 1gm Iv Premix IV 04/06/25 01:21 100 mls/hr QDAY NAKITA Administration Pharmacy Consult 1 each 03/30/25 10:01 Pharmacy To Consult Patient XX 04/29/25 10:00 PRN PRN CONSULT Pyridoxine HCl 25 mg 03/30/25 07:56 Pyridoxine 50 Mg Tablet PO 04/29/25 07:55 Q6HR PRN NAUSEA OR VOMITING Plan Ms. Parker is a 20 y/o female with PMH cholecystectomy (w/ biliary stent placement?) who presented to the ED 03/29 with subjective fevers, chills, body aches, productive cough x 2-3 weeks and RUQ and suprapubic pain x 1 week with vaginal spotting i/s/o 7 weeks . Admitted for acute liver injury, vaginal bleeding i/s/o in 1st trimester. Patient has a history of stent placement that was not removed, pending MRCP to confirm narrative. #Acute liver injury #Transaminitis #Direct hyperbilirubinemia #Bilirubinuria RUQ TTP, scleral icterus, jaundice, diffuse pruritus (pruritus present in previous pregnancies as well). Hx cholecystectomy. No encephalopathy AST 184, ALT 238, alk phos 642, Tbili 7.1, direct bili 5.7. Lipase and amylase WNL. No synthetic liver dysfunction Hepatitis panel non-reactive Acetaminophen level unremarkable Previous imaging in September 2024 showed absent gallbladder, CBG 0.7 cm with no stones. Mixed hepatocellular injury (ALT>AST) and cholestatic pattern (direct bili 5.7) DDX: stent not removed, hepatocholestasis, fatty lvier of , cholestasis of , biliary obstruction, drug induced (amoxicillin), autoimmune Less likely cholangitis or choledocholithiasis given hx cholecystectomy with imaging afterwards (September 2024) showed no stones, no fever, but cannot be completely r/o at this time. Plan: - RUQ US: Absent gallbladder no common bile duct stones - Pending UDS, lipid panel, TSH, EtOH level, CARLOS, mitochondrial Ab, - Consulted GI, appreciate recs - CTM VS for fevers - CTM liver function with daily CMP - Can consider ursodeoxycholic acid for pruritus most likely 2/2 cholestasis - Can consider N-acetylcysteine if on formulary #Vaginal bleeding #, 1st trimester . Positive test 7 weeks ago. Had light vaginal bleeding that progressed to needing 2-3 pads per day for bleeding, returned to light vaginal spotting Current unplanned, no care, new monogamous relationship. Previous STI panel negative, was told to get re-tested given short length of relationship Suprapubic region TTP b/l Beta HCG [id number] Plan: - Consulted OBGYN (Dr. Sewell), appreciate recs - Consider transvaginal US: 6 weeks 1 day - Pending GC/CT/VT, HIV #Upper respiratory symptoms 2-3 weeks subjective fever, chills, malaise, myalgia, congestion, productive cough COVID, flu negative CXR unremarkable Most likely viral Plan: - Supportive measures - pain management, encourage PO fluids - Pending cocci IgM and IgG #UTI Previously on amox-clav, did not complete course 2/2 GI distress. Denies urinary sx UA 1+ protein, 4+ bilirubin, +LE, 7 RBC, 12 WBC, 6 squamous epithelial cells, rare bacteria Plan: - Pending urine cx - Ceftriaxone 1 g IV daily #Normocytic anemia On admit hgb 11.8, HCT 34.7 i/s/o vaginal bleeding Plan: - Iron panel: wnl ferritin wnl, retic count Checklist Dispo: Admit to tele Diet: regular Bowel Reg: n/a VTE ppx: SCD, pt is mobile GI ppx: n/a Pain mgmt: Ibuprofen PO PRN Code status: full Plan discussed with Dr. Anthony and Dr. Sergio Chandler MD PGY1 Attending Provider Attestation/Addendum I have seen and examined the patient. I was physically present for the mcmullen portions of the services provided including history, physical exam, diagnosis, treatment plans and orders. I agree with assessment and plan of care as documented by residents. Even though this this note was carefully revised there may still be minor errors in therapeutic recreation assistant due to voice recognition software. Dorene Hill MD
[2025-03-30 16:27] LABS: C-Reactive Protein 8.0 mg/dL (0.0-0.9)
[2025-03-30] MEDS: DiphenhydrAMINE ELIX 25 MG/10 ML UDC PO ×2 (16:34→20:29)
--- NOTE | 2025-03-30 18:43 | PD.IMCONS ---
HPI Data of Consult Requesting Physician: Dorene Hill MD Primary Care Provider: Bernard Chaudhari MD Consult Narrative History of present illness: Chief complaint: Jaundice and elevated LFTs History of present illness: Patient is a 20-year-old female with history of cholelithiasis and choledocholithiasis has a history of cholecystectomy and ERCP and stent placement as per patient patient presented to the hospital with abdominal pain and the blood work she has obstructive pattern LFT 50% more percent of bilirubin is direct. ALT greater than AST. Patient was seen and examined is not cholangitic no acute distress at this time. cc:: cc: Dorene Hill MD Review of Systems Review of Systems Narrative Review of Systems: All 12 systems reviewed and negative except positive pertinent symptoms. Meds Home Medications and Allergies Home Medications ?Medication ?Instructions ?Recorded ?Confirmed ?Type amoxicillin 875 mg-potassium 1 tab PO Q12H 03/30/25 03/30/25 History clavulanate 125 mg tablet Allergies Allergy/AdvReac Type Severity Reaction Status Date / Time No Known Allergies Allergy Verified 03/29/25 17:00 Exam Vital Signs Temp Pulse Resp BP Pulse Ox O2 Del Method 97.3 F 57 L 15 102/68 100 Room Air 03/30/25 16:00 03/30/25 16:00 03/30/25 16:00 03/30/25 16:00 03/30/25 16:00 03/30/25 16:00 Routine Abdominal Exam Comments: Abdominal exam benign tenderness in right upper quadrant Results Labs 03/30/25 04:34 03/30/25 12:15 Labs: Short CBC 03/30/25 Range/Units 04:34 WBC 5.3 (3.6-11.0) Thou/mm3 Hgb 10.8 L (12.0-16.0) g/dL Hct 31.0 L (36.0-46.0) % Plt Count 288 D (140-440) Thou/mm3 BMP 03/30/25 03/30/25 04:34 12:15 Sodium 140 140 Potassium 3.1 L D 4.1 D Chloride 103 104 Carbon Dioxide 26.0 25.8 BUN < 5 L < 5 L Creatinine 0.5 L 0.6 Glucose 164 H 123 H Calcium 9.1 9.7 Liver Function 03/30/25 03/30/25 03/30/25 Range/Units 00:00 04:34 12:15 Total Bilirubin 7.7 H D (0.3-1.2) mg/dL Direct Bilirubin 5.7 H (0.0-0.3) mg/dL AST 132 H (0-34) U/L ALT 197 H (10-49) U/L Alkaline Phosphatase 567 H D (46-116) U/L Albumin 4.2 4.8 D (3.5-5.0) gm/dL Assessment and Plan Additional Assessment & Plan Additional Plan: Assessment : History of choledocholithiasis and cholelithiasis status post cholecystectomy and ERCP with a stent placement Obstructive LFTs 50 more percent and bilirubin is direct Plan of CARE: Proceed with LR 250 cc/h Will obtain MRCP to confirm presence of the stent and determine the type Due to the fact that patient is it would be to the best benefit of the patient to transfer the patient to a higher level of care that they have enough experience to perform ERCP on a patient Plan of care discussed with the medicine team Call GI with any questions.
[2025-03-30 20:00] VITALS: BP 104/64; PULSE 58; PULSE 60; RESP 14; TEMP 36.7; O2SAT 99
[2025-03-31] VITALS: BP 98/66; PULSE 60; RESP 18; TEMP 36.8; O2SAT 99
--- NOTE | 2025-03-31 | XR_ITS ---
MRI abdomen, without contrast. MRCP Date and time of exam: March 31, 2025, 0959 hours INDICATIONS: Status post cholecystectomy with biliary stent placement March 2025, fever chills body aches beginning 3 weeks ago Technique: Multiple axial and coronal images of the abdomen have been obtained with the Siemens 1.5T MRI scanner. Images obtained included T1 weighted transverse images, T2-weighted transverse images, T2-weighted transverse images fat-suppressed, T2 weighted haste fat suppressed transverse images, T1 weighted images, in and out of phase images, T2-weighted coronal images, breath hold, T2 weighted haze coronal images as well as T2 weighted coronal thick slab images, MRCP. Findings: Liver normal size, no focal liver lesions Absent gallbladder Enlarged common hepatic common bile duct 16 mm stone in the common hepatic duct 2 mm, 3 mm, 5 mm stones in the distal common bile duct Stones in the intrahepatic main biliary tree No pancreatitis Spleen not enlarged No hydronephrosis No ascites IMPRESSION: Multiple stones in the intrahepatic biliary tree, common hepatic duct, common bile duct
[2025-03-31 04:00] VITALS: BP 104/64; PULSE 54; PULSE 95; RESP 15; TEMP 36.3; O2SAT 98
[2025-03-31 05:49] VITALS: BMI 23.8
[2025-03-31 06:04] LABS: Basophils # (Auto) 0.0 Thou/mm3 (0.0-0.2); Basophils % (Auto) 1 % (0-2.5); Eosinophils # (Auto) 0.2 Thou/mm3 (0.0-0.5); Eosinophils % (Auto) 5 % (0-10); Hematocrit 32.7 % (36.0-46.0); Hemoglobin 11.4 g/dL (12.0-16.0); Immature Granulocytes Auto 0.02 Thou/mm3 (0.00-0.00); Immature Reticulocyte Fraction 6.7 % (3.0-15.9); Lymphocytes # (Auto) 2.1 Thou/mm3 (1.0-4.8); Lymphocytes % (Auto) 39 % (10-50); Mean Corpuscular HGB Conc 34.9 g/dl (31.0-37.0); Mean Corpuscular Hemoglobin 29.5 pg (25.0-35.0); Mean Corpuscular Volume 85 fL (80-100); Monocytes # (Auto) 0.5 Thou/mm3 (0.0-0.8); Monocytes % (Auto) 9 % (0-12); Neutrophils # (Auto) 2.5 Thou/mm3 (1.8-7.7); Neutrophils % (Auto) 47 % (37-80); Nucleated Red Blood Cell # 0.00 Thou/mm3 (0.00-0.00); Nucleated Red Blood Cell % 0 /100 WBC (0); Platelet Count 301 Thou/mm3 (140-440); RDW Standard Deviation 36.8 fL (36.4-46.3); Red Blood Count 3.87 Miln/mm3 (4.00-5.20); Reticulocyte % (Auto) 2.8 % (0.5-1.5); Reticulocyte Absolute Auto 106.4 Biln/L (25.0-75.0); Reticulocyte Hgb Content 32.7 pg (28.0-35.0); White Blood Count 5.4 Thou/mm3 (3.6-11.0)
[2025-03-31 06:31] LABS: Alanine Aminotransferase 181 U/L (10-49); Albumin, Serum 4.2 gm/dL (3.5-5.0); Albumin/Globulin Ratio 1.7 (1.2-2.2); Alkaline Phosphatase 553 U/L (46-116); Anion Gap 12 (7-16); Aspartate Amino Transferase 107 U/L (0-34); BUN/Creatinine Ratio 10 Ratio (12-20); Bilirubin,Total 2.6 mg/dL (0.3-1.2); Blood Urea Nitrogen < 5 mg/dL (9-23); Calcium 9.3 mg/dL (8.3-10.6); Calcium (Corrected) 9.3 mg/dL (8.5-10.1); Carbon Dioxide 24.5 mMol/L (20.0-31.0); Chloride 104 mMol/L (98-107); Creatinine (Component) 0.5 mg/dL (0.6-1.3); Estimated Creatinine Clearance 153.7 mL/min (>60); Globulin 2.5 gm/dL (2.3-3.5); Glucose 117 mg/dL (74-106); Magnesium 2.0 mg/dL (1.6-2.6); Osmolality,Calculated 277 (275-295); Phosphorous 4.6 mg/dL (2.4-5.1); Potassium 3.9 mMol/L (3.4-5.1); Sodium 140 mMol/L (136-145); Total Protein 6.7 gm/dL (5.7-8.2); eGFR > 60 See Note
--- NOTE | 2025-03-31 07:52 | ESPR_ITS ---
Subjective Subjective Interval history: no fever in first 24 hr here lft's noted Exam Vital Signs Temp Pulse Resp BP Pulse Ox O2 Del Method 97.3 F 95 15 104/64 98 Room Air 03/31/25 04:00 03/31/25 04:00 03/31/25 04:00 03/31/25 04:00 03/31/25 04:00 03/31/25 04:00 Narrative Exam no longer jaundiced. may move to another hospital for rx of stones and retained stent from september. our gi team does not do ercp to my knowledge Objective - Internal Medicine Labs 03/31/25 05:04 03/31/25 05:04 Labs: Laboratory Results - last 24 hr 03/29/25 03/29/25 03/30/25 17:22 23:11 12:15 WBC RBC Hgb Hct MCV MCH MCHC RDW Std Deviation Plt Count Neut % (Auto) Lymph % (Auto) [place] % (Auto) Eos % (Auto) Baso % (Auto) Neut # (Auto) Lymph # (Auto) [place] # (Auto) Eos # (Auto) Baso # (Auto) Immature Gran # (Auto) Absolute Nucleated RBC Immature Gran % Nucleated RBC % Retic Count (auto) Absolute Retic Immature Retic Fraction Retic Hgb Content CHr Sodium 140 Potassium 4.1 D Chloride 104 Carbon Dioxide 25.8 Anion Gap 10 BUN < 5 L Creatinine 0.6 Estim Creat Clear Calc 140.6 eGFR > 60 BUN/Creatinine Ratio 8 L Glucose 123 H Calculated Osmolality 277 Calcium 9.7 Corrected Calcium 9.7 Phosphorus 3.5 Magnesium Total Bilirubin AST ALT Alkaline Phosphatase C-Reactive Prot, Quant 8.0 H Total Protein Albumin 4.8 D Globulin Albumin/Globulin Ratio Chlam trachomat DNA PCR Negative Coccidioides IgM Ab Positive A N.gonorrhoeae DNA (PCR) Negative Trichomonas DNA Probe Negative 03/31/25 05:04 WBC 5.4 RBC 3.87 L Hgb 11.4 L Hct 32.7 L MCV 85 MCH 29.5 MCHC 34.9 RDW Std Deviation 36.8 Plt Count 301 Neut % (Auto) 47 Lymph % (Auto) 39 [place] % (Auto) 9 Eos % (Auto) 5 Baso % (Auto) 1 Neut # (Auto) 2.5 Lymph # (Auto) 2.1 [place] # (Auto) 0.5 Eos # (Auto) 0.2 Baso # (Auto) 0.0 Immature Gran # (Auto) 0.02 H Absolute Nucleated RBC 0.00 Immature Gran % 0 Nucleated RBC % 0 Retic Count (auto) 2.8 H Absolute Retic 106.4 H Immature Retic Fraction 6.7 Retic Hgb Content CHr 32.7 Sodium 140 Potassium 3.9 Chloride 104 Carbon Dioxide 24.5 Anion Gap 12 BUN < 5 L Creatinine 0.5 L Estim Creat Clear Calc 153.7 eGFR > 60 BUN/Creatinine Ratio 10 L Glucose 117 H Calculated Osmolality 277 Calcium 9.3 Corrected Calcium 9.3 Phosphorus 4.6 Magnesium 2.0 Total Bilirubin 2.6 H D AST 107 H ALT 181 H Alkaline Phosphatase 553 H C-Reactive Prot, Quant Total Protein 6.7 Albumin 4.2 D Globulin 2.5 Albumin/Globulin Ratio 1.7 Chlam trachomat DNA PCR Coccidioides IgM Ab N.gonorrhoeae DNA (PCR) Trichomonas DNA Probe Assessment & Plan A&P Narrative hyper bili with neg hep panel. no documented fever here retained biliary stent from september in [place] pos local cocci test note neg cxr so cocci may be falsely positive would focus on biliary stent issue for now and await cocci at d as cxr is neg and she has no other sx. Time Spent With Patient Time: Total time spent is greater than 50% in coordination of care (as documented) at patient's floor/unit and/or counseling patient:
[2025-03-31 08:00] VITALS: BP 100/63; PULSE 60; PULSE 72; RESP 16; TEMP 36.3; O2SAT 98
[2025-03-31] MEDS: cefTRIAXone/D5w 1gm IV premix 1 GM/50 ML BAG IV (08:28)
--- NOTE | 2025-03-31 08:47 | EKG_ITS ---
[facility] Test Date: 2025-03-31 Pat Name: HUDSON STEVENS [facility] Sign Builder Supervisor: GUERO : 2005 Requested By: Henry Fink Order Number: [id number] Reading MD: Henry Fink Measurements Intervals [place] Rate: 93 P: 42 MS: 122 QRS: 57 QRSD: 85 T: 0 QT: 370 QTc: 462 Interpretive Statements SINUS RHYTHM WITH OCCASIONAL VENTRICULAR PREMATURE COMPLEXES No previous ECG available for comparison /[id number]/S0/[id number]
--- NOTE | 2025-03-31 08:47 | PC.NURSE ---
Notified Dr Fink that patient was complaining of sudden tightness and chest pain, while feelin the urge to vomit. Dr will come and see patient at bedside.
[2025-03-31 12:00] VITALS: BP 98/52; PULSE 64; PULSE 81; RESP 17; TEMP 36.4; O2SAT 100
--- NOTE | 2025-03-31 12:10 | PC.SS ---
Update: MRCP Pending. Patient will discharge home when medically cleared.
[2025-03-31] MEDS: SODIUM CHLORIDE 0.9% 1000 ML 1,000 ML 70 ML IV (13:30)
--- NOTE | 2025-03-31 14:54 | PC.CM ---
Addendum entered by Nicole Morley RN 03/31/25 18:43: 1830 I called [facility] and I initiated a transfer. I faxed over information and I pushed over images. Packet with 1 CD left on transfer nurse desk. Addendum entered by Nicole Morley RN 03/31/25 18:14: 1805 I received a call from Vidya with [facility] transfer center. She states Dr. Miguel ARIAS reviewed patient and he declined patient stating she is too high risk due to her being 6 weeks. He recommends a tertiary center. I called and spoke to Dr. Kirk and gave him the information. He asked that I reach out to a tertiary center. Addendum entered by Nicole Morley RN 03/31/25 17:27: 1730 Packet started and 1 CD made. Addendum entered by Nicole Morley RN 03/31/25 17:06: 1610 [facility] transfer center called and doctors spoke peer to peer. I faxed facesheet to [facility] per request. Original Note: 1445 I received a referral to transfer patient for Interventional GI for ERCP. Patient had an ERCP and is found to have stones in the common hepatic duct and CBD. T Bili 7.7. Patient is 7 weeks and cocci positive. I reviewed patient 's EMR and patient was seen in our ED on08/23/2024 and was sent to [facility] with accepting GI doctor Dr. Diaz.
--- NOTE | 2025-03-31 15:40 | PD.GYNPROG ---
Documentation for date of: 03/31/25 [employer] Subjective Subjective Interval history: Patient is a 20-year-old -2-0-2 at 6 weeks with a live IUP with cardiac activity. Today she reports minor spotting. She is most likely going to have an MRCP at a different facility due to her . Patient reports overall feeling better. She is tolerating a clear liquid diet. We did discuss the possibility that her bile acids insults will be elevated and we can treat this with Urosidiol as an outpatient 300 twice daily if needed. For now she can take Benadryl as needed or Zyrtec. Patient is a high risk as she has delivered at 34 and 28 weeks. She will need to follow-up at our [place] [facility] on [facility] to establish care. She will likely need to be comanaged this with a maternal- medicine physician. Subjective: patient reports feeling better Exam Vital Signs Temp Pulse Resp BP Pulse Ox O2 Del Method 97.5 F 64 17 98/52 L 100 Room Air 03/31/25 12:00 03/31/25 12:00 03/31/25 12:00 03/31/25 12:00 03/31/25 12:00 03/31/25 12:00 Constitutional Constitutional: no acute distress Comments: Patient appears less jaundiced than when I last saw her. She is resting comfortably in bed eating Jell-O. Abdomen soft nontender Urinary Catheter Management Cath placed during this visit: no [employer]CH[employer]IC - PN: Obj Data Labs 03/31/25 05:04 03/31/25 05:04 Labs: Laboratory Results - last 24 hr 03/30/25 03/31/25 12:15 05:04 WBC 5.4 RBC 3.87 L Hgb 11.4 L Hct 32.7 L MCV 85 MCH 29.5 MCHC 34.9 RDW Std Deviation 36.8 Plt Count 301 Neut % (Auto) 47 Lymph % (Auto) 39 [place] % (Auto) 9 Eos % (Auto) 5 Baso % (Auto) 1 Neut # (Auto) 2.5 Lymph # (Auto) 2.1 [place] # (Auto) 0.5 Eos # (Auto) 0.2 Baso # (Auto) 0.0 Immature Gran # (Auto) 0.02 H Absolute Nucleated RBC 0.00 Immature Gran % 0 Nucleated RBC % 0 Retic Count (auto) 2.8 H Absolute Retic 106.4 H Immature Retic Fraction 6.7 Retic Hgb Content CHr 32.7 Sodium 140 Potassium 3.9 Chloride 104 Carbon Dioxide 24.5 Anion Gap 12 BUN < 5 L Creatinine 0.5 L Estim Creat Clear Calc 153.7 eGFR > 60 BUN/Creatinine Ratio 10 L Glucose 117 H Calculated Osmolality 277 Calcium 9.3 Corrected Calcium 9.3 Phosphorus 4.6 Magnesium 2.0 Total Bilirubin 2.6 H D AST 107 H ALT 181 H Alkaline Phosphatase 553 H C-Reactive Prot, Quant 8.0 H Total Protein 6.7 Albumin 4.2 D Globulin 2.5 Albumin/Globulin Ratio 1.7 [employer]IC - A/P Assessment and plan (1) Acute hepatitis: Problem details: Total bili is down from 7-2.6. If patient needs an ERCP she will need this at a another facility that is comfortable performing an ERCP during . If they could wait on the ERCP till 14 to 28 weeks of , as this is the best time during for a surgical procedure. But this would be up to the doctor who is managing her gallstone disease and would of course depend on how stable the patient is. Status: Acute (2) Early stage of : Problem details: Patient has Rh+. She is having less bleeding. Recommend setting an appointment up upon discharge at the [place] [facility] at Since she has a history of labor she will likely need vaginal progesterone started during , and possible transvaginal ultrasounds to check for cervical length measurements. 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 This was explained to the patient in detail. Status: Acute Time Spent With Patient Time: Total time spent is greater than 50% in coordination of care (as documented) at patient's floor/unit and/or counseling patient: Time with patient: less than 15 minutes
[2025-03-31 16:00] VITALS: BP 93/50; PULSE 68; PULSE 83; RESP 17; TEMP 36.5; O2SAT 97
--- NOTE | 2025-03-31 16:03 | ESPR_ITS ---
Documentation for date of: 03/31/25 [employer] Subjective Subjective Interval history: Patient is a 20-year-old -2-0-2 at 6 weeks with a live IUP with cardiac activity. Today she reports minor spotting. She is most likely going to have an MRCP at a different facility due to her . Patient reports overall feeling better. She is tolerating a clear liquid diet. We did discuss the possibility that her bile acids insults will be elevated and we can treat this with Urosidiol as an outpatient 300 twice daily if needed. For now she can take Benadryl as needed or Zyrtec. Patient is a high risk as she has delivered at 34 and 28 weeks. She will need to follow-up at our [place] [facility] on [facility] to establish care. She will likely need to be comanaged this with a maternal- medicine physician. Exam Vital Signs Temp Pulse Resp BP Pulse Ox O2 Del Method 97.5 F 64 17 98/52 L 100 Room Air 03/31/25 12:00 03/31/25 12:00 03/31/25 12:00 03/31/25 12:00 03/31/25 12:00 03/31/25 12:00 Urinary Catheter Management Cath placed during this visit: no [employer] - PN: Obj Data Labs 03/31/25 05:04 03/31/25 05:04 Labs: Laboratory Results - last 24 hr 03/30/25 03/31/25 12:15 05:04 WBC 5.4 RBC 3.87 L Hgb 11.4 L Hct 32.7 L MCV 85 MCH 29.5 MCHC 34.9 RDW Std Deviation 36.8 Plt Count 301 Neut % (Auto) 47 Lymph % (Auto) 39 [place] % (Auto) 9 Eos % (Auto) 5 Baso % (Auto) 1 Neut # (Auto) 2.5 Lymph # (Auto) 2.1 [place] # (Auto) 0.5 Eos # (Auto) 0.2 Baso # (Auto) 0.0 Immature Gran # (Auto) 0.02 H Absolute Nucleated RBC 0.00 Immature Gran % 0 Nucleated RBC % 0 Retic Count (auto) 2.8 H Absolute Retic 106.4 H Immature Retic Fraction 6.7 Retic Hgb Content CHr 32.7 Sodium 140 Potassium 3.9 Chloride 104 Carbon Dioxide 24.5 Anion Gap 12 BUN < 5 L Creatinine 0.5 L Estim Creat Clear Calc 153.7 eGFR > 60 BUN/Creatinine Ratio 10 L Glucose 117 H Calculated Osmolality 277 Calcium 9.3 Corrected Calcium 9.3 Phosphorus 4.6 Magnesium 2.0 Total Bilirubin 2.6 H D AST 107 H ALT 181 H Alkaline Phosphatase 553 H C-Reactive Prot, Quant 8.0 H Total Protein 6.7 Albumin 4.2 D Globulin 2.5 Albumin/Globulin Ratio 1.7 [employer] - A/P Assessment and plan (1) Acute hepatitis: Problem details: Total bili is down from 7-2.6. If patient needs an ERCP she will need this at a another facility that is comfortable performing an ERCP during . If they could wait on the ERCP till 14 to 28 weeks of , as this is the best time during for a surgical procedure. But this would be up to the doctor who is managing her gallstone disease and would of course depend on how stable the patient is. Status: Acute (2) Early stage of : Problem details: Patient has Rh+. She is having less bleeding. Recommend setting an appointment up upon discharge at the [place] [facility] at Since she has a history of labor she will likely need vaginal progesterone started during , and possible transvaginal ultrasounds to check for cervical length measurements. 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 This was explained to the patient in detail. [facility] 11/25/25 Status: Acute Time Spent With Patient Time: Total time spent is greater than 50% in coordination of care (as documented) at patient's floor/unit and/or counseling patient: Time with patient: less than 15 minutes
--- NOTE | 2025-03-31 16:34 | ESPR_ITS ---
Documentation for date of: 03/31/25 No overnight events. Patient examined at bedside. Noted to have a chief complain of pleurtic chest pain likely secondary to valley fever given positive test. Pending infectious disease consult as fluconzole should be used with caution given teratogenicity. OBGYN may facilitate topic of fetus viability and weighting risk and benefits of starting Fluconazole in conjunction with Infectious disease. Patient education required on options given fetus is currently only several weeks versus 23 weeks. MRCP noted to have multple stones in the intrahepatic biliary tree, common hepatic duct, and common bile duct. Given complexity of case due to suggesting possible biliary obstruction s/p stent and cholecystectomy, recommendation by gastroenterology, that patient be transferred to a tertiary care center for possible intervention via ERCP. Transfer nurse updated. Senior Resident Attestation: I have discussed the case with supervising physician and international operations manager physician involved in the care of patient. I personally saw and examined patient and discussed the assessment and plan with the entire medical team, including attending. I agree with assessment and plan as documented below. - The patient's plan was discussed with attending Dr. Sergio Anthony MD PGY2 Internal Medicine Subjective Subjective Interval history: Dr. Caballero recommends MRCP to find stent, and then transfer to higher level of care since patient is . Dr. Sewell (ID) consulted for treatment of cocci since flucanozole is teratogenic. MRCP Multiple stones in the intrahepatic biliary tree, common hepatic duct, common bile duct. Unable to visualize stent, may need CT imaging; however, unfavorable given status. Patient examined bedside, labs reviewed. Patient has chest pain reproducible to palpation, improved by coughing. Exam Vital Signs Temp Pulse Resp BP Pulse Ox O2 Del Method 97.5 F 64 17 98/52 L 100 Room Air 03/31/25 12:00 03/31/25 12:00 03/31/25 12:00 03/31/25 12:00 03/31/25 12:00 03/31/25 12:00 Narrative Exam General: No acute distress, well nourished Eye: PERRL, EOMI, normal conjunctiva, scleral icterus, mucosal darkening HENT: Normocephalic, atraumatic, normal hearing, moist oral mucosa Neck: Supple, non-tender, no JVD, no lymphadenopathy Lungs: CTA, non-labored respirations, symmetric chest rise, no use of accessory muscles, spO2 appropriate on RA Heart: Normal S1 and S2, no S3 or S4 appreciated. Normal rate and regular rhythm, no murmurs, rubs gallops, or edema. Peripheral pulses intact bilaterally, capillary refill brisk distally Abdomen: Soft, nondistended, NBS, TTP b/l suprapubic regions Musculoskeletal: Normal range of motion and strength, no tenderness or swelling Skin: Skin is warm, dry, no rashes or lesions. Jaundice Neurologic: Alert, awake and oriented x3. CN II-XII grossly intact. No focal neuro deficits. No signs of meningeal irritation noted. Psychiatric: Cooperative, appropriate mood and affect Objective Labs 04/01/25 05:30 04/01/25 05:30 Labs: Laboratory Results - last 24 hr 03/31/25 05:04 WBC 5.4 RBC 3.87 L Hgb 11.4 L Hct 32.7 L MCV 85 MCH 29.5 MCHC 34.9 RDW Std Deviation 36.8 Plt Count 301 Neut % (Auto) 47 Lymph % (Auto) 39 [place] % (Auto) 9 Eos % (Auto) 5 Baso % (Auto) 1 Neut # (Auto) 2.5 Lymph # (Auto) 2.1 [place] # (Auto) 0.5 Eos # (Auto) 0.2 Baso # (Auto) 0.0 Immature Gran # (Auto) 0.02 H Absolute Nucleated RBC 0.00 Immature Gran % 0 Nucleated RBC % 0 Retic Count (auto) 2.8 H Absolute Retic 106.4 H Immature Retic Fraction 6.7 Retic Hgb Content CHr 32.7 Sodium 140 Potassium 3.9 Chloride 104 Carbon Dioxide 24.5 Anion Gap 12 BUN < 5 L Creatinine 0.5 L Estim Creat Clear Calc 153.7 eGFR > 60 BUN/Creatinine Ratio 10 L Glucose 117 H Calculated Osmolality 277 Calcium 9.3 Corrected Calcium 9.3 Phosphorus 4.6 Magnesium 2.0 Total Bilirubin 2.6 H D AST 107 H ALT 181 H Alkaline Phosphatase 553 H Total Protein 6.7 Albumin 4.2 D Globulin 2.5 Albumin/Globulin Ratio 1.7 Quality Measures Quality Measures none Assessment & Plan Assessment Current Active Medications: Generic Name Dose Route Start Last Admin Trade Name Freq PRN Reason Stop Dose Admin Diphenhydramine HCl 25 mg 03/30/25 10:21 03/30/25 20:29 Diphenhydramine Elix 25 Mg/10 Ml Udc PO 04/29/25 10:02 25 mg Q4HR PRN Administration nausea or headache Ceftriaxone Sodium/Dextrose 1 gm in 50 mls @ 100 mls/hr 03/30/25 01:22 03/31/25 08:28 Rocephin/D5w 1gm Iv Premix IV 04/06/25 01:21 100 mls/hr QDAY NAKITA Administration Sodium Chloride 1,000 mls @ 70 mls/hr 03/31/25 13:22 03/31/25 13:30 Ns IV 04/01/25 03:39 70 mls/hr .[id number] ONE Administration Plan Ms. Parker is a 20 y/o female with PMH cholecystectomy (w/ biliary stent placement?) who presented to the ED 03/29 with subjective fevers, chills, body aches, productive cough x 2-3 weeks and RUQ and suprapubic pain x 1 week with vaginal spotting i/s/o 7 weeks . Admitted for acute liver injury, vaginal bleeding i/s/o in 1st trimester. Patient has a history of stent placement that was not removed, MRCP did not reveal any stents but it showed multiple stones in the intrahepatic biliary tree, common hepatic duct, common bile duct. Unable to visualize stent, may need CT imaging; however, unfavorable given status. ID consulted for cocci treatment management. Patient is pending transfer. #Acute Liver injury, improving #Concern for Biliary Obstruction, likely secondary to stent placement #Transaminitis, improving #Direct hyperbilirubinemia #Bilirubinuria #Cholecystetomy s/p biliary stent RUQ TTP, scleral icterus, jaundice, diffuse pruritus (pruritus present in previous pregnancies as well). Hx cholecystectomy. No encephalopathy AST 184, ALT 238, alk phos 642, Tbili 7.1, direct bili 5.7. Lipase and amylase WNL. No synthetic liver dysfunction Hepatitis panel non-reactive Acetaminophen level unremarkable Previous imaging in September 2024 showed absent gallbladder, CBG 0.7 cm with no stones. Mixed hepatocellular injury (ALT>AST) and cholestatic pattern (direct bili 5.7) DDX: stent not removed, hepatocholestasis, fatty lvier of , cholestasis of , biliary obstruction, drug induced (amoxicillin), autoimmune Less likely cholangitis or choledocholithiasis given hx cholecystectomy with imaging afterwards (September 2024) showed no stones, no fever, but cannot be completely r/o at this time. Plan: - RUQ US: Absent gallbladder no common bile duct stones - UDS negative - lipid panel unremarkable - EtOH level >3 - CARLOS, mitochondrial Ab, - TSH WNL - Consulted GI, appreciate recs - CTM VS for fevers - CTM liver function with daily CMP - Can consider ursodeoxycholic acid for pruritus most likely 2/2 cholestasis - Can consider N-acetylcysteine if on formulary #Upper respiratory symptoms #Pneumonia, cocci #Cocci 2-3 weeks subjective fever, chills, malaise, myalgia, congestion, productive cough COVID, flu negative CXR unremarkable Cocci + Plan: - Supportive measures - pain management, encourage PO fluids - Dr. Sewell (ID) consulted appreciate recs #Vaginal bleeding #, 1st trimester . Positive test 7 weeks ago. Had light vaginal bleeding that progressed to needing 2-3 pads per day for bleeding, returned to light vaginal spotting Current unplanned, no care, new monogamous relationship. Previous STI panel negative, was told to get re-tested given short length of relationship Suprapubic region TTP b/l Beta HCG [id number] Plan: - Consulted OBGYN (Dr. Sewell), appreciate recs - Consider transvaginal US: 6 weeks 1 day - Pending GC/CT/VT, HIV #UTI Previously on amox-clav, did not complete course 2/2 GI distress. Denies urinary sx UA 1+ protein, 4+ bilirubin, +LE, 7 RBC, 12 WBC, 6 squamous epithelial cells, rare bacteria Plan: - Urine cx: No growth at 48 hours - Ceftriaxone 1 g IV daily (03/30 - #Normocytic anemia On admit hgb 11.8, HCT 34.7 i/s/o vaginal bleeding Plan: - Iron panel: wnl ferritin wnl, retic count Checklist Dispo: Admit to tele Diet: regular Bowel Reg: n/a VTE ppx: SCD, pt is mobile GI ppx: n/a Pain mgmt: Ibuprofen PO PRN Code status: full Plan discussed with Dr. Anthony and Dr. Sergio Chandler MD PGY1 Attending Provider Attestation/Addendum I have seen and examined the patient. I was physically present for the mcmullen portions of the services provided including history, physical exam, diagnosis, treatment plans and orders. I agree with assessment and plan of care as documented by residents. Even though this this note was carefully revised there may still be minor errors in plum packer due to voice recognition software. Dorene Hill MD
--- NOTE | 2025-03-31 16:42 | PD.IMPROG ---
Documentation for date of: 03/31/25 Subjective Subjective Interval history: Pt was seen and examined, stable, c/o abdominal pain. Exam Vital Signs Temp Pulse Resp BP Pulse Ox O2 Del Method 97.5 F 68 17 98/52 L 100 Room Air 03/31/25 12:00 03/31/25 16:00 03/31/25 12:00 03/31/25 12:00 03/31/25 12:00 03/31/25 12:00 Routine Abdominal Exam Comments: Benign Objective Labs 03/31/25 05:04 03/31/25 05:04 Labs: Laboratory Results - last 24 hr 03/31/25 05:04 WBC 5.4 RBC 3.87 L Hgb 11.4 L Hct 32.7 L MCV 85 MCH 29.5 MCHC 34.9 RDW Std Deviation 36.8 Plt Count 301 Neut % (Auto) 47 Lymph % (Auto) 39 [place] % (Auto) 9 Eos % (Auto) 5 Baso % (Auto) 1 Neut # (Auto) 2.5 Lymph # (Auto) 2.1 [place] # (Auto) 0.5 Eos # (Auto) 0.2 Baso # (Auto) 0.0 Immature Gran # (Auto) 0.02 H Absolute Nucleated RBC 0.00 Immature Gran % 0 Nucleated RBC % 0 Retic Count (auto) 2.8 H Absolute Retic 106.4 H Immature Retic Fraction 6.7 Retic Hgb Content CHr 32.7 Sodium 140 Potassium 3.9 Chloride 104 Carbon Dioxide 24.5 Anion Gap 12 BUN < 5 L Creatinine 0.5 L Estim Creat Clear Calc 153.7 eGFR > 60 BUN/Creatinine Ratio 10 L Glucose 117 H Calculated Osmolality 277 Calcium 9.3 Corrected Calcium 9.3 Phosphorus 4.6 Magnesium 2.0 Total Bilirubin 2.6 H D AST 107 H ALT 181 H Alkaline Phosphatase 553 H Total Protein 6.7 Albumin 4.2 D Globulin 2.5 Albumin/Globulin Ratio 1.7 Assessment & Plan A&P Narrative History of choledocholithiasis and cholelithiasis status post cholecystectomy and ERCP with a stent placement Obstructive LFTs 50 more percent and bilirubin is direct MRCP Multiple stones in the intrahepatic biliary tree, common hepatic duct, common bile duct Plan of CARE: Proceed with LR 250 cc/h Due to the fact that patient is it would be to the best benefit of the patient to transfer the patient to a higher level of care that they have enough experience to perform ERCP on a patient Plan of care discussed with the medicine team Call GI with any questions. Time Spent With Patient Time: Total time spent is greater than 50% in coordination of care (as documented) at patient's floor/unit and/or counseling patient:
--- NOTE | 2025-03-31 19:31 | ESCONSULT_ITS ---
RE: HUDSON STEVENS : 2005 DATE OF CONSULTATION: 03/31/2025 REFERRING PHYSICIAN: Dr. Peralta REASON FOR CONSULTATION: Probable false positive cocci test in a patient with a negative x-ray at 20 years of age and . HISTORY OF PRESENT ILLNESS: The patient is a 20-year-old woman. She is about 7.5-8 weeks at most. She was followed by [facility] [employer] [facility] [facility] and had some jaundice, also has a retained stent that was been placed in [place] about 6 or 7 months ago. The patient is being referred back there as our GI doctors do not do ERCPs nod do they place stents. She has some stones that were retained as well. The bilirubin has been improved. There are no positive cultures noted. There is a positive Valley fever test I am not sure why it was obtained. She has a negative x-ray. She has no other health problems other than her and which is not a health problem per se. PAST SURGICAL HISTORY: None. ALLERGIES: NONE NOTED. IMMUNIZATIONS: Not available. FAMILY HISTORY: Not obtained. SOCIAL HISTORY: see notes in chart. IMMUNIZATIONS: Not available. PHYSICAL EXAMINATION: General: Shows a pleasant woman looking her stated age. HEENT: Benign. HEART: Benign. LUNGS: Benign. ABDOMEN: gravid but benign abdomen. She is not visibly jaundiced any longer. She was jaundiced apparently on arrival. Bilirubin has also fallen nicely. ASSESSMENT: 1. Probable stent obstruction with stones with an old stent in place. 2. Probable false positive Valley fever test. with neg cxr 3. about 8 weeks gestation. 4. Retained stent with jaundice on arrival. RECOMMENDATIONS: Patient probably needs removal of the stent and so she may need to see a GI doctor in [place] who could do that. Our folks do endoscopy but they do not do ERCP or stenting and certainly stent removal is probably outside of their scope. I think her Valley fever test is probably a false positive so unless she is also positive at another hospital I will not treat her for now. Her chest x-ray is negative. She is so they often have a tougher time with Valley fever but I do not think she has it. She has no respiratory symptoms, does not require oxygen, and does seem to have no other lesions. Her abdomen is benign. Followup will be with the GI people wherever she is sent for the retained stent . I will see her again on a p.r.n. basis. I would probably wait on her fluconazole for now and retreat her only if her test is positive at [facility]. DT: 16:46:24 TT: 18:49:00 Ref: [id number] - TID: [id number] MTD
--- NOTE | 2025-03-31 19:47 | PD.IMPROG ---
Documentation for date of: 03/31/25 Subjective Subjective Interval history: patient evaluated Total bilirubin 2.6 AST ALT 170 and 181 and alk phos 553 Exam Vital Signs Temp Pulse Resp BP Pulse Ox O2 Del Method 97.7 F 83 17 93/50 L 97 Room Air 03/31/25 16:00 03/31/25 16:00 03/31/25 16:00 03/31/25 16:00 03/31/25 16:00 03/31/25 16:00 Objective Labs 03/31/25 05:04 03/31/25 05:04 Labs: Laboratory Results - last 24 hr 03/31/25 05:04 WBC 5.4 RBC 3.87 L Hgb 11.4 L Hct 32.7 L MCV 85 MCH 29.5 MCHC 34.9 RDW Std Deviation 36.8 Plt Count 301 Neut % (Auto) 47 Lymph % (Auto) 39 [place] % (Auto) 9 Eos % (Auto) 5 Baso % (Auto) 1 Neut # (Auto) 2.5 Lymph # (Auto) 2.1 [place] # (Auto) 0.5 Eos # (Auto) 0.2 Baso # (Auto) 0.0 Immature Gran # (Auto) 0.02 H Absolute Nucleated RBC 0.00 Immature Gran % 0 Nucleated RBC % 0 Retic Count (auto) 2.8 H Absolute Retic 106.4 H Immature Retic Fraction 6.7 Retic Hgb Content CHr 32.7 Sodium 140 Potassium 3.9 Chloride 104 Carbon Dioxide 24.5 Anion Gap 12 BUN < 5 L Creatinine 0.5 L Estim Creat Clear Calc 153.7 eGFR > 60 BUN/Creatinine Ratio 10 L Glucose 117 H Calculated Osmolality 277 Calcium 9.3 Corrected Calcium 9.3 Phosphorus 4.6 Magnesium 2.0 Total Bilirubin 2.6 H D AST 107 H ALT 181 H Alkaline Phosphatase 553 H Total Protein 6.7 Albumin 4.2 D Globulin 2.5 Albumin/Globulin Ratio 1.7 Impressions Impression: Most likely plan Biliary stent Patient in the process of being transferred Assessment & Plan A&P Narrative History of choledocholithiasis and cholelithiasis status post cholecystectomy and ERCP with a stent placement Obstructive LFTs 50 more percent and bilirubin is direct MRCP Multiple stones in the intrahepatic biliary tree, common hepatic duct, common bile duct Plan of CARE: Proceed with LR 250 cc/h Due to the fact that patient is it would be to the best benefit of the patient to transfer the patient to a higher level of care that they have enough experience to perform ERCP on a patient Plan of care discussed with the medicine team Call GI with any questions. Time Spent With Patient Time: Total time spent is greater than 50% in coordination of care (as documented) at patient's floor/unit and/or counseling patient:
[2025-03-31 20:00] VITALS: BP 91/46; PULSE 61; PULSE 77; RESP 16; TEMP 36.9; O2SAT 99
--- NOTE | 2025-03-31 22:50 | PC.NURSE ---
Received call from Edmar of [facility]. Per Edmar pt has been accepted; however, they are still waiting on insurance authorization and a bed for pt. Per Edmar, will call back when insurance is authorized and when a bed is available.
[2025-04-01] VITALS: BP 97/56; PULSE 55; PULSE 60; RESP 14; TEMP 36.4; O2SAT 99
--- NOTE | 2025-04-01 00:55 | PC.NURSE ---
Called hospitalist spoke to resident Dr. Ceballos, made aware pt noted to campos down HR 38 on tractor mechanic and then pt had a brief run of bigeminy. Pt assessed pt alert/oriented x3. No s/s of acute distress noted. No new orders received. Plan of care ongoing.
[2025-04-01 04:00] VITALS: BP 106/72; PULSE 52; PULSE 70; RESP 16; TEMP 36.4; O2SAT 98
[2025-04-01 04:51] VITALS: BMI 24.1
--- NOTE | 2025-04-01 05:00 | PC.NURSE ---
Dr. Ceballos on Tele unit, made aware maintenance fluid NS @70 is discontinued, only one time dose 1000ml of NS was ordered; asked if pts needs additional doses; per MD keep IV fluids off for now, will let day shift know.
[2025-04-01 06:23] LABS: Basophils # (Auto) 0.0 Thou/mm3 (0.0-0.2); Basophils % (Auto) 1 % (0-2.5); Eosinophils # (Auto) 0.2 Thou/mm3 (0.0-0.5); Eosinophils % (Auto) 4 % (0-10); Hematocrit 32.3 % (36.0-46.0); Hemoglobin 11.2 g/dL (12.0-16.0); Immature Granulocytes Auto 0.01 Thou/mm3 (0.00-0.00); Lymphocytes # (Auto) 2.3 Thou/mm3 (1.0-4.8); Lymphocytes % (Auto) 42 % (10-50); Mean Corpuscular HGB Conc 34.7 g/dl (31.0-37.0); Mean Corpuscular Hemoglobin 29.2 pg (25.0-35.0); Mean Corpuscular Volume 84 fL (80-100); Monocytes # (Auto) 0.4 Thou/mm3 (0.0-0.8); Monocytes % (Auto) 7 % (0-12); Neutrophils # (Auto) 2.6 Thou/mm3 (1.8-7.7); Neutrophils % (Auto) 47 % (37-80); Nucleated Red Blood Cell # 0.00 Thou/mm3 (0.00-0.00); Nucleated Red Blood Cell % 0 /100 WBC (0); Platelet Count 299 Thou/mm3 (140-440); RDW Standard Deviation 36.0 fL (36.4-46.3); Red Blood Count 3.83 Miln/mm3 (4.00-5.20); White Blood Count 5.5 Thou/mm3 (3.6-11.0)
[2025-04-01 06:59] LABS: Alanine Aminotransferase 145 U/L (10-49); Albumin, Serum 3.9 gm/dL (3.5-5.0); Albumin/Globulin Ratio 1.7 (1.2-2.2); Alkaline Phosphatase 524 U/L (46-116); Anion Gap 9 (7-16); Aspartate Amino Transferase 66 U/L (0-34); BUN/Creatinine Ratio 13 Ratio (12-20); Bilirubin,Total 1.8 mg/dL (0.3-1.2); Blood Urea Nitrogen < 5 mg/dL (9-23); Calcium 9.3 mg/dL (8.3-10.6); Calcium (Corrected) 9.4 mg/dL (8.5-10.1); Carbon Dioxide 26.9 mMol/L (20.0-31.0); Chloride 103 mMol/L (98-107); Creatinine (Component) 0.4 mg/dL (0.6-1.3); Estimated Creatinine Clearance 192.1 mL/min (>60); Globulin 2.3 gm/dL (2.3-3.5); Glucose 105 mg/dL (74-106); Magnesium 1.9 mg/dL (1.6-2.6); Osmolality,Calculated 274 (275-295); Phosphorous 4.3 mg/dL (2.4-5.1); Potassium 3.6 mMol/L (3.4-5.1); Sodium 139 mMol/L (136-145); Total Protein 6.2 gm/dL (5.7-8.2); eGFR > 60 See Note
[2025-04-01 07:05] LABS: Glucose Estimated Average 111 mg/dL (80-131); Hemoglobin A1C 5.5 % Hgb (4.8-6.0)
--- NOTE | 2025-04-01 07:40 | PC.CC ---
Addendum entered by Fredy Marquez RN 04/01/25 19:35: DC SUMMARY AND SIGNED TBA needs to be faxed back to Susan [phone]. DC summary and 72 hour med list to be printed and added to the transfer packet. 1919: Handoff given to bedside nurse Kayli and Charge Nurse Schuyler. Transfer packet w/ CD given to Charge Nurse Schuyler. 1912: spoke to Dr. Ruby, he is not on campus yet. 1904: spoke to Dr. Hill, he is off campus. 1901: received call from Sonja davis asking about the TBA, informed her that I need the MD to sign. She asked it that will happen soon because they want to transfer this patient tonight. I informed i will work on it but i will hand off to the charge nurse if i cant complete. Tele contact information provided. Addendum entered by Fredy Marquez RN 04/01/25 18:45: Pt has been accepted to both. Hui pantoja/ [facility] is aware. Transfer nurse to f/u with Susan and Hui in the morning if auth is required since [facility] is contracted with [facility]. Addendum entered by Fredy Marquez RN 04/01/25 17:13: 1710: called and left message for Lisa Dempsey to return my call. Need prior auth and/or DANELLE for [facility]. 1653: Spoke to Sonja Davis, provided the information that Hui provided. I provided Hui's contact information as well. Sonja will reach out to Hui. 1640: received call back from Hui, informed her that [facility] is requesting auth. She stated, they are contracted with them so they do not a prior auth and that Susan needs to request the auth from them. I informed her that Sonja Davis stated they need the auth. Hui stated she can not process it today as it is almost the end of the day. She stated to provide her name and number to Susan if questioned. 1643: spoke to Carol Ann pantoja/ [facility], she stated they do not need auth from [facility]elson they need auth and DANELLE from [facility]. I was not informed of this earlier today. 1630: Faxed accepting information to [facility]. 1553: Called Hui Nolan, left VM to return my call. 1550: Sonja pantoja/ [facility] called back with accepting information. [facility], [address] [place] [address] Mendez Irizarry accepting . Addendum entered by Fredy Marquez RN 04/01/25 12:15: 1154: Called [facility] back, spoke to Aydee. clinical update provided. She will review and present and call back. 1150: Clinicals sent to Susan. 1132: Called [facility] to initiate transfer request, spoke to Tania briefly before we were disconnected. Addendum entered by Fredy Marquez RN 04/01/25 11:31: 1115: Informed Dr. Hill and team regarding the request to search other facilities, informed to proceed with other search while waiting for [facility]. 1110: received call from Hui Nolan, she stated that she is still processing the insurance auth but [facility] will need a DANELLE from [facility]. Hui stated that [facility] will request the DANELLE from [facility] once she provides the insurance auth to [facility]. Hui asked that we search other facilities as the DANELLE process may cause a delay in care. She provided other facilities such as all [facility], [facility], [facility], [facility], [facility] in [place]. 1105: informed Dr. Hill and his team that patient has been accepted by [facility] and is pending insurance auth. 1050: spoke to patient at bedside about transfer and accepting facility, pt agreeable to transfer. Addendum entered by Fredy Marquez RN 04/01/25 09:48: 0936: Received call from Hui Nolan. She questioned the need for DANELLE. I informed her that is Felicita w/ [facility] stated. Hui will reach out to Felicita for clarification. Hui stated she is currently working on creating the authorization. She requested last progress notes. Hospitalist and GI progress notes sent to Hui. Addendum entered by Fredy Marquez RN 04/01/25 09:01: 0848: received call from Asia pantoja/ [facility]. She stated she will reach out to the nurse and provide the details of the need and my contact number. Ins CM for this patient is Hui Allen. Addendum entered by Fredy Marquez RN 04/01/25 08:15: 0815: called and left kit/ [facility] [phone]. Will fax auth and DANELLE request also. Original Note: 0735: called [facility] to f/u on status of transfer request. Per Felicita, pt was accepted last night at [address] Jasmin Contreras. Insurance authorization and DANELLE is required.
[2025-04-01 08:00] VITALS: BP 90/53; PULSE 57; PULSE 73; RESP 16; TEMP 36.4; O2SAT 96
--- NOTE | 2025-04-01 09:44 | ESDS_ITS ---
Planned Discharge Date 04/01/25 DS: Providers Provider Date of admission: 03/30/25 00:50 Primary care physician: Bernard Chaudhari MD Admitting Provider: Jose Mccurdy MD Attending Provider on Admission: Dorene Hill MD Consults: 03/30/25 00:57 Consult to Obstetrics Stat Comment: Consulting Provider: Donato ([facility])Radha 03/30/25 00:59 Consult to Gastroenterology Stat Comment: Consulting Provider: Sera Williamson 03/30/25 06:31 Health [facility] Referral - Knowledge Deficit Routine Comment: Positive screening for knowledge deficit needs. 03/30/25 14:22 Consult to Gastroenterology Routine Comment: Consulting Provider: Luis Angel Costa 03/30/25 16:28 Consult to Infectious Diseases Routine Comment: Cocci+ Consulting Provider: Brant Sewell 03/31/25 14:33 Referral - Pst Supervisor Stat Service Needed for Transfer: Gastroenterology Addl Comments:: Interventional GI for Emergent ERCP. Stones in common hepatic duct and CBD. T. BILI 7.7 Patient 7 weeks and cocci positive Attending Provider on DC: Dorene Hill MD Discharging Provider: Dorene Hill MD DS: Diagnosis Problem List Completed Was Problem List Reviewed/Reconciled?: Yes Hospital Course Hospital Course Hospital course: Patient a 20 y/o female with PMH cholecystectomy w/ biliary stent placement who presented to the ED 03/29 with subjective fevers, chills, body aches, productive cough x 2-3 weeks and RUQ and suprapubic pain x 1 week with vaginal spotting i/s/o 7 weeks . Admitted for acute liver injury, vaginal bleeding i/s/o in 1st trimester. ED Course Summary: Afebrile (T max 99), tachycardic 105 self resolved to 76. Labs significant for hgb 11.8, HCT 34.7, AST 184, ALT 238, alk phos 642, total bili 7.1, direct bili 5.7. Lipase and amylase WNL. HCG 43939. COVID and flu negative. Hepatitis panel nonreactive. UA 1.038 specific gravity, 1+ protein, 4+ bilirubin, +LE, 7 RBC, 12 WBC, 6 squamous epithelium, rare bacteria. Pending urine cx. No meds given in ED. Hospital Course: Per patient history she had biliary stent place but was not able to follow up with her provider.?Abdominal ultrasound showed absent gallbladder no common bile duct stones. Dr. Caballero, GI, was consulted and recommends transfer to tertiary care following MRCP. MRCP did not reveal stents, but is not the preferred imaging for stent visualization. Dr. Sewell, OBGYN, was consulted and recommends ERCP 12-28 weeks of but defers to doctor m anaging her biliary disease at tertiary center. Patient found to be cocci positive. Infectious diseases , Dr. Sewell, was consulted for management due to teratogenicity of fluconazole, states to hold off flucanozole because cocci may be false positive, recommends repeating test outpatient. She was treated for UTI before admission and is managed with ceftriaxone 1 g IV, urine cultures negative inpatient. Plan to transfer to tertiary [facility] for biliary stent removal. #Transaminitis #Direct hyperbilirubinemia #Bilirubinuria #Upper respiratory symptoms #Cocci #Vaginal bleeding #, 1st trimester #UTI #Normocytic anemia Instructions: -At least two more days of antibiotics for UTI being treated with Ceftriaxone started on 03/30/2025-04/03/2025 -Continue pyridoxine 50 mg PO every 6 hours as needed. Patient's plan and care discussed with my attending, Dr. Hill, and supervising resident MD Teddy Carey MD Internal Medicine PGY-1 Senior Resident Attestation: I have discussed the case with supervising physician and automotive internet sales manager physician involved in the care of patient. I personally saw and examined patient and discussed the assessment and plan with the entire medical team, including attending. I agree with assessment and plan as documented above. - The patient's plan was discussed with attending Dr. Sergio Anthony MD PGY2 Internal Medicine Status at Discharge Functional status at discharge: independent ambulation Overall status at discharge: patient is progressing back to baseline Time Spent with Patient Time attestation: Total time spent providing and/or coordinating discharge services: Time spent: Greater than 30 minutes Exam Vital Signs Temp Pulse Resp BP Pulse Ox O2 Del Method 97.5 F 73 16 90/53 L 96 Room Air 04/01/25 08:00 04/01/25 08:00 04/01/25 08:00 04/01/25 08:00 04/01/25 08:00 04/01/25 08:00 Narrative Exam General: No acute distress, well nourished Eye: PERRL, EOMI, normal conjunctiva, scleral icterus, HENT: Normocephalic, atraumatic, normal hearing, moist oral mucosa mucosal darkening Neck: Supple, non-tender, no JVD, no lymphadenopathy Lungs: CTA, non-labored respirations, symmetric chest rise, no use of accessory muscles, spO2 appropriate on RA Heart: Normal S1 and S2, no S3 or S4 appreciated. Normal rate and regular rhythm, no murmurs, rubs gallops, or edema. Peripheral pulses intact bilaterally, capillary refill brisk distally Abdomen: Soft, nondistended, NBS, NTTP Musculoskeletal: Normal range of motion and strength, no tenderness or swelling Skin: Skin is warm, dry, no rashes or lesions. Jaundice Neurologic: Alert, awake and oriented x3. CN II-XII grossly intact. No focal neuro deficits. No signs of meningeal irritation noted. Psychiatric: Cooperative, appropriate mood and affect Discharge Plan Plan Patient Disposition: Xfer Other Care Plan Goals: Instructions: -At least two more days of antibiotics for UTI being treated with Ceftriaxone started on 03/30/2025-04/03/2025 -Continue pyridoxine 50 mg PO every 6 hours as needed. Prescriptions/Referrals Prescriptions/Med Rec: New pyridoxine (vitamin B6) 50 mg Tablet 25 mg PO Q6HR PRN (Reason: Nausea Or Vomiting) 3 Days Qty: 10 0RF Discontinued amoxicillin-pot clavulanate 875-125 mg tablet 1 tab PO Q12H Patient Comments: TOME 1 TABLETA POR V A ORAL DOS VECES AL D A Referrals: Bernard Chaudhari MD [Primary Care Provider, Family Practice] Patient/Caregiver Discharge Instructions Education Materials: Understanding Uterine Bleeding, Understanding Coccidioidomycosis Print Language: Wolof Stand Alone Forms: Melina Award Info., Patient Portal Info Letter Quality Discharge Quality Measures VTE prophylaxis MD Attestestation MD Attestation I have seen and examined the patient. I was physically present for the mcmullen portions of the services provided including history, physical exam, diagnosis, treatment plans and orders. I agree with assessment and plan of care as documented by residents. Even though this this note was carefully revised there may still be minor errors in tire specialist due to voice recognition software. Dorene Hill MD
[2025-04-01] MEDS: cefTRIAXone/D5w 1gm IV premix 1 GM/50 ML BAG IV (09:46)
[2025-04-01 12:00] VITALS: BP 93/52; PULSE 70; PULSE 72; RESP 16; TEMP 36.3; O2SAT 96
[2025-04-01 16:00] VITALS: BP 96/62; PULSE 65; PULSE 66; RESP 15; TEMP 36.4; O2SAT 99
[2025-04-01 20:00] VITALS: BP 115/69; PULSE 93; PULSE 95; RESP 18; TEMP 36.3; O2SAT 97
--- NOTE | 2025-04-01 20:20 | PD.IMPROG ---
Documentation for date of: 04/01/25 Subjective Subjective Interval history: LFTs continues to improve Total bilirubin now down to 1.8 AST ALT 66 and 145 and alk phos of 524 Patient in the process of being transferred I do believe patient has a plugged up biliary stent Exam Vital Signs Temp Pulse Resp BP Pulse Ox O2 Del Method 97.6 F 66 15 96/62 99 Room Air 04/01/25 16:00 04/01/25 16:00 04/01/25 16:00 04/01/25 16:00 04/01/25 16:00 04/01/25 16:00 Objective Labs 04/01/25 05:30 04/01/25 05:30 Labs: Laboratory Results - last 24 hr 04/01/25 05:30 WBC 5.5 RBC 3.83 L Hgb 11.2 L Hct 32.3 L MCV 84 MCH 29.2 MCHC 34.7 RDW Std Deviation 36.0 L Plt Count 299 Neut % (Auto) 47 Lymph % (Auto) 42 [place] % (Auto) 7 Eos % (Auto) 4 Baso % (Auto) 1 Neut # (Auto) 2.6 Lymph # (Auto) 2.3 [place] # (Auto) 0.4 Eos # (Auto) 0.2 Baso # (Auto) 0.0 Immature Gran # (Auto) 0.01 H Absolute Nucleated RBC 0.00 Immature Gran % 0 Nucleated RBC % 0 Sodium 139 Potassium 3.6 Chloride 103 Carbon Dioxide 26.9 Anion Gap 9 BUN < 5 L Creatinine 0.4 L Estim Creat Clear Calc 192.1 eGFR > 60 BUN/Creatinine Ratio [address] Glu mg/dL 111 Hemoglobin A1c 5.5 Calculated Osmolality 274 L Calcium 9.3 Corrected Calcium 9.4 Phosphorus 4.3 Magnesium 1.9 Total Bilirubin 1.8 H D AST 66 H ALT 145 H Alkaline Phosphatase 524 H D Total Protein 6.2 Albumin 3.9 Globulin 2.3 Albumin/Globulin Ratio 1.7 Impressions Impression: Blood to biliary stent Patient in the process of being transferred to a tertiary center Assessment & Plan A&P Narrative History of choledocholithiasis and cholelithiasis status post cholecystectomy and ERCP with a stent placement Obstructive LFTs 50 more percent and bilirubin is direct MRCP Multiple stones in the intrahepatic biliary tree, common hepatic duct, common bile duct Plan of CARE: Proceed with LR 250 cc/h Due to the fact that patient is it would be to the best benefit of the patient to transfer the patient to a higher level of care that they have enough experience to perform ERCP on a patient Plan of care discussed with the medicine team Call GI with any questions. Time Spent With Patient Time: Total time spent is greater than 50% in coordination of care (as documented) at patient's floor/unit and/or counseling patient:
[2025-04-01] MEDS: DiphenhydrAMINE ELIX 25 MG/10 ML UDC PO (21:20)
[2025-04-02] VITALS: BP 101/55; PULSE 61; RESP 20; TEMP 36.4; O2SAT 98
--- NOTE | 2025-04-02 03:45 | PC.NURSE ---
REPORT CALLED TO YOSELYN CLINE. REPORT GIVEN TO SAI COTTON CONVERTER . PT A/O X4
--- NOTE | 2025-04-03 07:26 | PC.CC ---
Question about which facility pt was transferred. Spoke to [facility]. [phone]. He confirmed pt has been admitted as observation on the 8th floor.
[2025-04-05 07:05] LABS: ANA Screen, IFA POSITIVE (NEGATIVE); ANA Titer 1:320 titer; Mitochondrial Ab NEGATIVE (NEGATIVE)
[2025-04-05 13:52] LABS: Chenodeoxycholic Acid* 84.6 umol/L (< OR = 3.9); Cholic Acid* 227.8 umol/L (< OR = 2.8); Deoxycholic Acid* <0.5 umol/L (< OR = 2.3)
[2025-04-05 19:50] LABS: Sm Antibody <1.0 NEG AI (<1.0 NEGATIVE)
[2025-04-06 06:16] LABS: Ceruloplasmin* 55 mg/dL (14-48); IgG, Serum* 1029 mg/dL (600-1640); LKM-1 Antibody (IgG)* <20.0 U; Sm/RNP Antibody <1.0 NEG AI (<1.0 NEGATIVE)
[2025-04-06 06:17] LABS: Total Bile Acids 312.4 umol/L (< OR = 8.3)
== END 2025-04-02 02:10 | disposition other institution (70) | DRG 566 ==
LOC: SERX 03-30 00:45 → SERHOLD 03-30 01:46 → S2NX 03-30 06:06
PROVIDERS: Nurse Practitioner Family; Obstetrics & Gynecology; Admitting Provider Student in an Organized Health Care Education/Training Program; Emergency Provider Emergency Medicine; PCP Family Medicine; Visit Provider Student in an Organized Health Care Education/Training Program
DX: O9A.211 Injury, poisoning and certain other consequences of external causes complicating pregnancy, first trimester (principal); O98.411 Viral hepatitis complicating pregnancy, first trimester; O26.851 Spotting complicating pregnancy, first trimester; Z3A.01 Less than 8 weeks gestation of pregnancy; B17.9 Acute viral hepatitis, unspecified; S36.119A Unspecified injury of liver, initial encounter; L29.9 Pruritus, unspecified; R82.2 Biliuria; O23.41 Unspecified infection of urinary tract in pregnancy, first trimester; N39.0 Urinary tract infection, site not specified; O99.011 Anemia complicating pregnancy, first trimester
CPT/HCPCS: 36415; 71045; 74181; 76705; 76817; 80053; 80061; 80069; 80074; 80307; 80320; 80329; 81001; 81514; 82248; 82390; 82728; 82784; 83036; 83540; 83550; 83690; 83735; 83789; 84100; 84443; 84702; 85025; 85046; 85610; 85730; 86038; 86039; 86140; 86235; 86255; 86376; 86635; 86703; 87086; 87491; 87502; 87591; 87661; 87811; 93005; 96365; 99283; J0696; J1200; J7030; A9270; G0480

== ENCOUNTER 2025-05-21 09:46 | Outpatient (AMB) | payer MEDICAID, SELFPAY ==
[2025-05-21 10:04] VITALS: BP 104/68; PULSE 64; RESP 16; TEMP 36.2; O2SAT 99; BMI 27.3
--- NOTE | 2025-05-21 10:04 | OBCLNT_ITS ---
Vital Signs 05/21/25 10:04 Height 1.55 m Height Method Stated Weight 65.771 kg Weight Measurement Method Standing Scale BMI 27.3 BP 104/68 Blood Pressure Source Automatic Cuff Blood Pressure Location Right Upper Arm Position Sitting Respiration 16 Pulse 64 Pulse Source Monitor Temp 97.1 F Temp Source Temporal Artery Scan Pulse Oximetry (%) 99 Oxygen Delivery Method Room Air Allergies/Home Meds Allergies & Medications Allergies No Known Allergies Allergy (Verified 05/21/25 10:05) Medication Reconciliation vits no.126-ferrous fum 28 mg iron-folic acid 800 mcg tablet (Classic ) 1 tab PO DAILY 90 days #90 tabs 05/21/25 [Rx] Intake Visit Data Collection New Patient or Established: Established Patient (seen at [facility] within 3 years) Reason for Visit:: OBI Seen by Clinical Staff ONLY (RN/MA): No Crime Scene Evidence Technician Required: No Do You Feel Safe at Home: Yes Authorities Contacted: N/A PCP or OBGYN visit in last 3 months: No Hx Now: Yes Are you currently on any form of Control: No Last menstrual period: 02/08/25 Pain Present Currently: Yes Pain Location: Unable to identify Pain Scale Used: Thompson-Kent/Numerical Pain scale:: 3 Smoking Status Smoking Status: Never smoker Immunizations Flu Vaccine in the Last 12 Months: No Flu Vaccine Exclusion Criteria: No Exclusion Criteria Questionnaires Covid-19 Vaccine Questionnaire Has patient been vacinated for Covid-19 Have you been vacinated for Covid-19: Yes PHQ-9 PHQ-2 Over the last 2 weeks, how often have you been bothered by any of the following problems? 1. Little interest or pleasure in doing things: several days 2. Feeling down, depressed, or hopeless: not at all Total score: 1 PHQ-9 3. Trouble falling or staying asleep, or sleeping too much: Nearly every day 4. Feeling tired or having little energy: Nearly every day 5. Poor appetite or overeating: Nearly every day 6. Feeling bad about yourself - or that you are a failure or have let yourself or your family down: Not at all 7. Trouble concentrating on things, such as reading the newspaper or watching television: Not at all 8. Moving or speaking so slowly that other people could have noticed? - Or the opposite - being so fidgety or restless that you have been moving around a lot more than usual: not at all 9. Thoughts that you would be better off or of hurting yourself in some way: Not at all Total score: 10.0 If you checked off any problems, how difficult have these problems made it for you to do your work, take care of things at home, or get along with other people?: somewhat difficult Source: Developed by Drs. Stoney Benitez, Jolie Bardales, Vikas Mcclain and colleagues, with an educational felisa from [employer]. Depression screen completed yes Social History Living Situation History Marital Status: Single Lives With: Alone Housing: Apartment Tobacco History Smoking Status: Never smoker Alcohol History Alcohol Intake: Never Domestic Abuse History Do You Feel Safe at Home: Yes ROAD CREW MEMBER: Past Medical History Past Medical History: No Hx Neurological Disorders, No Hx Cardiac Disorders, No Hx Cancer, No Hx Blood Disorders, No Hx Gastrointestinal Disorders, No Hx Renal Disease, No Hx Diabetes Mellitus Type 1 and No Hx Diabetes Mellitus Type 2 OB Initial Visit OB Flowsheet OB Flowsheet Initial Weight: Not Recorded Date -?-?-?-?-?-?-?-?-?-?-?-?- EGA Weight BP Alb Glu CTX Pres Fundal ht FHR Mov Dilation Station Effacement Hx Notes Visit Note 05/21/25 -?-?-?-?-?-?--?-?-?-?-?-?- 14w 0d 65.771 kg 104/68 14 146 20 years , LMP at 02/12/2025 h/o gallstone pancreatitis and cholecys tectomy in early 2024 and then needed ERCP at [facility] for CBD stone in Menstrual History Flow: heavy Menstrual regularity: regular Monthly: Yes Age at menarche: 10 On control pills at conception: No Date of positive home test: 03/10/25 OB History : 4 Para: 2 Hx # Pregnancies: 2 Hx Total # of Abortions (Spontaneous & Elective): 1 # of Living Children: 2 Delivery History 1st : Child's name: LIZBETH RUIZ date: 04/25/21 sex: female Gestational age at delivery (weeks): 34 Delivery type: vaginal weight (lbs): 2267.962 g History of depression before or after : No 2nd : Child's name: NISHANT RUIZ date: 11/13/23 sex: female Gestational age at delivery (weeks): 28 Delivery type: vaginal weight (lbs): 1360.777 g weight (oz): 4989.516 g Delivery complications: MOM HAD HIGH BLOOD PRESSURE, ITCHY BODY History of depression before or after : No Infection History & Risk Evaluation History of STDs: none HIV risk evaluation: low risk Hepatitis B risk evaluation: low risk Patient or partner has history of Genital Herpes: No Varicella/chicken pox status: immunized Genetic Screening & History Genetic Screening/Teratology Counseling - Includes patient, baby's father, or anyone in either family with: Infection History 1. Live with someone with TB or exposed to TB: No 2. Rash or viral illness since last menstrual period: No 3. Hepatitis B,C: No Other (see comments) Source: [employer] Review of Systems Review of Systems Systems Reviewed: All systems reviewed, normal except as documented Exam Narrative Physical exam: Alert and oriented x 3 no shortness of breath Pain no chest pain no palpitations Chest clear bilaterally no additional sounds, no wheezing no rales CVS regular rate and rhythm No CVAT Abdomen nontender, normal bowel sounds No guarding no rigidity No hernias Office Procedures [facility] LOC & Office Proc's Nursing/Assessment Patient Status: Initial/New Patient OB Clinic Nursing Assessment: Medication Reconciliation, Update PMH in EMR and Vital Signs OB Clinic Coordination of Care: Complex Care and Chronic Disease 1-5, Education Complex Pt/Fam, Consent,records obtained, informed consent, Lab and Imaging orders, Results/Orders obtained and Staff clarify orders New Patient Charge New Patient Point Assignment: [id number] New Patient Point Charge: TIME MOTION ANALYST Level 3 (5921-1197) Assessment & Plan Diagnosis / Problem List (1) : Status: Acute Qualifiers: Weeks of gestation: 14 weeks Qualified Code(s): Z3A.14 - 14 weeks gestation of (2) Acute hepatitis: Status: Acute Additional Assessment 20 years , LMP at 02/12/2025 h/o gallstone pancreatitis and cholecystectomy in early 2024 and then needed ERCP at [facility] for CBD stone in no further follow up on this issue / she needs CMP/and also Ob labs and NIPT and MSAFP / follow up in 4 weeks / refer to [facility] as well for US / take vitamins
== END 2025-05-21 11:32 | disposition home or self-care (01) ==
LOC: HODSOBC 09:46
PROVIDERS: Supervising Provider Obstetrics & Gynecology; Visit Provider Obstetrics & Gynecology
DX: O09.892 Supervision of other high risk pregnancies, second trimester (principal); B17.9 Acute viral hepatitis, unspecified; O98.412 Viral hepatitis complicating pregnancy, second trimester; Z3A.14 14 weeks gestation of pregnancy; O09.212 Supervision of pregnancy with history of pre-term labor, second trimester; Z90.49 Acquired absence of other specified parts of digestive tract; Z87.19 Personal history of other diseases of the digestive system
CPT/HCPCS: 99203; G0463